=== PATIENT | male | born 1960 | race Caucasian/White ===

== ENCOUNTER → 2023-05-17 07:11 | Outpatient (REF) | payer OTHER, SELFPAY | LOC: DHCBC/DCA 07:11 | PROVIDERS: ATTENDING PHYSICIAN Internal Medicine Cardiovascular Disease | DX: K30 Functional dyspepsia (principal); R07.2 Precordial pain; R94.31 Abnormal electrocardiogram [ECG] [EKG] | CPT/HCPCS: 78452; 93017; A9500 ==

== ENCOUNTER → 2023-06-01 13:44 | Outpatient (REF) | payer OTHER, SELFPAY | LOC: RCS 13:44 | PROVIDERS: ATTENDING PHYSICIAN Internal Medicine Cardiovascular Disease; FAMILY PHYSICIAN Family Medicine | DX: K30 Functional dyspepsia (principal); R07.2 Precordial pain | CPT/HCPCS: 93306 ==

== ENCOUNTER 2023-10-23 10:08 | Emergency (ER) | payer OTHER, SELFPAY ==
[2023-10-23 10:17] VITALS: BP 165/95
--- NOTE | 2023-10-23 12:06 | ED.GENMED ---
History of Present Illness
General
Chief Complaint: Abdominal Pain
Source: patient
Exam Limitations: none
Time Seen by Provider: 10/23/23 11:41
History of Present Illness
History of Present Illness:
63-year-old male with 10 days to 2 weeks of left-sided abdominal pain. Points to the left flank. Some radiation of the back. No fever chills no urinary symptoms. No change in bowels. No bloody or mucousy stools. No nausea or vomiting. No
history of similar pain. Does have a history of IBS but feels different. Patient is supposed to go on a trip in the next few days and did not want to be ill while he was traveling.
Past History
Past History
ED Past Medical History: HTN, Hypercholesterolemia, NIDDM and Other (IBS, Obesity)
ED Past Surgical History: Cholecystectomy
Social History
Tobacco: Non-smoker
Alcohol: None
Drug: None
Personal:
Living: with family
Employment: Employed
Family History
Family History: Other (Mother had [place] at 60)
Review of Systems
Review of Systems
All Other Systems: Not applicable
Constitutional: Denies fever or chills
Respiratory: Reports no symptoms
Cardiac: Reports no symptoms
Phy Exam
Physical Exam
Physical Exam:
GENERAL: Alert and oriented in no apparent distress
EYE: Orbits normal.
NECK: Supple
CARDIAC: Regular rate and rhythm without any obvious murmurs.
LUNGS: Clear breath sounds,normal
ABDOMEN: Soft, very minimal left mid quadrant tenderness. No rebound or guarding no mass or hernia. No rash. No CVA tenderness.
NEUROLOGICAL: Alert and oriented , grossly non-focal
SKIN: Warm and dry, no rash or lesion, no discoloration, skin intact.
MUSCULOSKELETAL: No edema,no deformity.Good color
PSYCH: Normal and appropriate interaction.
Course
Orders/Labs/Results
Orders:
Orders
10/23/23 12:05
IV Insert/Care/Rem.- Treatment PRN
0.9% Sodium Chloride 500 ml [Nss] 500 ml IV BOLUS
10/23/23 12:33
Complete Blood Count/With Diff Urgent
Comprehensive Metabolic Panel Urgent
Lipase Urgent
10/23/23 13:32
Urinalysis Reflex To Culture Urgent
Date Specimen was Collected: 10/23/23
Time Specimen was Collected: 13:30
10/23/23 14:05
CT Abd/Pel (IV only)-DH only Urgent
Comment:
Reason For Exam: Left-sided abdominal pain
10/23/23 15:26
Electrocardiogram (*1) Stat
Reason for Study: Abdominal Pain
EKG- Treatment ONCE
Abnormal Lab Results
10/23/23 10/23/23
12:33 13:32
Immature Gran % 0.6 H %
(0-0.5)
Sodium 133 L mmol/L
(135-145)
Glucose 307 H mg/dl
(70-99)
Urine Ketones 2+ A
(Negative)
Urine Glucose 3+ A
(Negative)
10/23/23 12:33
10/23/23 12:33
Vital Signs
Initial and Last Documented VS:
Initial Vital Signs
Temp Pulse Resp BP Pulse Ox
98 F 83 18 165/95 95
10/23/23 10:17 10/23/23 10:17 10/23/23 10:17 10/23/23 10:17 10/23/23 10:17
Last Documented Vital Signs
Temp Pulse Resp BP Pulse Ox
98 F 83 18 165/95 95
10/23/23 10:17 10/23/23 10:17 10/23/23 10:17 10/23/23 10:17 10/23/23 10:17
MDM/Problems Addressed
Differential Diagnosis Includes:
Differential includes kidney stone diverticulitis colitis musculoskeletal/radiculopathy. No rash. Doubt shingles. Workup in progress. If urinalysis positive for blood we will do a plain CT. If urinalysis is negative we will do a CT with IV
contrast
*Radiology
Radiology exam reviewed: radiology read reviewed (Gastric wall thickening nonspecific small bowel findings)
*Pulse Oximetry
Patient hypoxic: no
*EKG
Interpreted by ED Provider?: Yes
Interpretation: abnormal
Comparison EKG: no changes
Heart Rate: 66
Rate: normal
Rhythm: sinus
Maybee: normal axis
Interval: normal interval
QRS Pattern: normal QRS
Ischemia: non-specific ST changes
*Critical Care Note
Total Time (30-74mins, 75-104mins- exclusive of procedures): Not Applicable
Update Note
Update Note:
Patient has had continuous symptoms for a week to 10 days. Points to the left mid to lateral quadrant. Do not feel this is a cardiac issue. No chest pain no shortness of breath no upper back pain. Negative stress test in May 2023. Will do a
Pepcid a day and follow-up
ED Attending Note
-
Portions of this chart may have been created with voice recognition software.� Occasional wrong word or��sound alike� substitutions may have occurred due to the inherent limitations of voice recognition software.
Discharge Plan
Departure
Patient Disposition: Home (Routine Discharge)
Date of Disposition: 10/23/23
Time of Disposition: 15:23
Patient with high blood pressure during this ER visit?: Yes
Discharge Problem:
Left-sided abdominal pain, hyperglycemia
Instructions: High Blood Sugar, Adult ED, Abdominal Pain, BLOOD PRESSURE
Prescriptions:
No Action
cholestyramine (with sugar) 4 GM powder in packet
4 gm PO DAILY
amlodipine 5 MG tablet
10 mg PO DAILY
aspirin 81 MG tablet,delayed release (DR/EC)
81 mg PO DAILY
atorvastatin [Lipitor] 20 mg Tablet
20 mg PO HS
metformin 1,000 mg tablet
1,000 mg PO BID
alum-mag hydroxide-simeth [Mylanta] 200-200-20 mg/5 mL Suspension
10 ml FEEDING TUBE QID PRN (Reason: stomach issue)
Tiff[place] Heartburn-Gas 750-80 mg Tablet,Chewable
1 tab PO BIDPRN PRN (Reason: stomach issuses)
sucralfate [Carafate] 1 gram tablet
1 g PO QID Qty: 30 0RF
dicyclomine 10 mg capsule
10 mg PO QID Qty: 30 0RF
oxycodone 5 mg tablet
5 mg PO Q4H PRN (Reason: pain) Qty: 14 0RF
pantoprazole [Protonix] 40 mg tablet,delayed release (DR/EC)
40 mg PO DAILY Qty: 10 0RF
amlodipine 10 mg tablet
10 mg PO DAILY Qty: 30 0RF
metronidazole 500 mg tablet
500 mg PO TID Qty: 21 0RF
levofloxacin 750 mg tablet
750 mg PO DAILY 7 Days Qty: 7 0RF
hydrocortisone acetate [Anusol-HC] 25 mg suppository
25 mg [place] DAILY Qty: 12 0RF
Referrals:
Saskia Schroeder MD [Family Provider] - Follow up in 2-3 days
Marcos Roman MD [Active] - Next open appointment
Activity Restrictions/Additional Instructions:
Take a Pepcid a day for the next 2 weeks
Recommend GI follow-up
Return sooner with increased pain fever vomiting or any other concerning symptoms
Interventions
Interventions:
*Risk Screen - Suicide Last Done: 10/23/23 10:17
*General Assessment Last Done: 10/23/23 10:17
*Neglect/Abuse Screening Last Done: 10/23/23 10:17
ED- Fall Risk Assessment Last Done: 10/23/23 14:01
*ED COVID-19 Vaccine History Last Done: 10/23/23 14:01
LF-Yacpuf-Fltydbtarj Assessment Last Done: 10/23/23 14:01
Discharge Date and Time
Print Language: AZERI
[2023-10-23] MEDS: NSS 500 IV (12:34)
[2023-10-23 12:43] LABS: % Eosinophils 2.3 % (0-6); % Immature Granulocytes 0.6 % (0-0.5); % Lymphocytes 23.2 % (20.5-51.1); % Monocytes 5.8 % (1.7-9.3); % Neutrophils 67.1 % (42.2-75.2); Absolute Basophils 0.1 10^3/uL (0-0.2); Absolute Eosinophils 0.2 10^3/uL (0-0.7); Absolute Lymphocytes 1.7 10^3/uL (1.2-3.4); Absolute Monocytes 0.4 10^3/uL (0.1-0.6); Absolute Neutrophils 4.8 10^3/uL (1.4-6.5); Hematocrit 43.4 % (39.0-52.0); Mean Corp Hgb Conc. 36.9 g/dL (33.0-37.0); Mean Corpuscular Hgb 30.6 pg (27.0-31.0); Nucleated Red Blood Cells % 0 % (-); Platelet Count 259 10^3/uL (130-400); Red Blood Cell Count 5.23 10^6/uL (4.70-6.10); Red Cell Dist. Width 12.7 % (11.5-14.5); White Blood Cell Count 7.1 10^3/uL (4.8-10.8)
[2023-10-23 12:57] LABS: ALT (SGPT) 23 U/L (0-50); AST (SGOT) 22 U/L (17-59); Albumin 4.3 g/dl (3.5-5.0); Alkaline Phosphatase 123 U/L (38-126); Blood Urea Nitrogen 19 mg/dl (9-20); Calcium 9.8 mg/dl (8.4-10.2); Carbon Dioxide 23 mmol/L (22-30); Chloride 100 mmol/L (98-107); Glucose 307 mg/dl (70-99); Lipase 83 U/L (23-300); Potassium 4.6 mmol/L (3.5-5.1); Sodium 133 mmol/L (135-145); Total Bilirubin 0.9 mg/dl (0.2-1.3); Total Protein 6.7 g/dl (6.3-8.2); eGFR > 60.00
[2023-10-23 13:39] LABS: Urine Albumin Negative (Neg - Trace); Urine Bilirubin Negative (Negative); Urine Character Clear (Clear); Urine Color Yellow; Urine Glucose 3+ (Negative); Urine Ketone 2+ (Negative); Urine Leukocyte Negative (Negative); Urine Nitrite Negative (Negative); Urine Occult Blood Negative (Negative); Urine Urobilinogen Negative (Neg - 1+)
[2023-10-23 16:08] VITALS: BP 122/79
== END 2023-10-23 16:13 | disposition home or self-care (01) ==
LOC: EMR 10:08
PROVIDERS: EMERGENCY PHYSICIAN Emergency Medicine; FAMILY PHYSICIAN Family Medicine
DX: R10.9 Unspecified abdominal pain (principal); E11.65 Type 2 diabetes mellitus with hyperglycemia; I10 Essential (primary) hypertension; K58.9 Irritable bowel syndrome, unspecified
CPT/HCPCS: 99285; 96360; 96361; 74177; 80053; 81003; 83690; 85025; 93005; Q9967

== ENCOUNTER 2024-03-27 00:18 | Emergency (ER) | payer OTHER, SELFPAY ==
[2024-03-27 00:21] VITALS: BP 150/100
--- NOTE | 2024-03-27 01:30 | ED.MUSCINJ ---
HPI-Injury
<ANGELA Shaw - Last Filed: 03/27/24 03:20>
General
Chief Complaint: Musculo-Skeletal Complaint
Source: patient
Exam Limitations: none
Time Seen by Provider: 03/27/24 01:13
History of Present Illness-Injury
Is this injury a work related problem?: No
Is pt an associate of [facility]?: No
Initial Injury comments:
This is a 63 year old male that comes in with c/o right knee pain and swelling. States that he had some low back pain after shoving snow at [place]. States that his left leg is giving out and on Tuesday it gave out twice. States that he finds of he
only puts his toes down and the ball of the foot that is when hie legs gives out. States that on Tuesday he was going form the Kitchen to the family room and there is a step there. States that he went down on the right knee. Know he has pain in the
right knee and swelling. States that he has considerable bruising of the posterior leg. Denies any fever, chills, chest pain, SOB, abd pain, nausea, vomiting, diarrhea, headache, dizziness, urinary burning.
Past History
<ANGELA Shaw - Last Filed: 03/27/24 03:20>
Past History
ED Past Medical History: HTN, Hypercholesterolemia, NIDDM and Other (IBS, Obesity)
ED Past Surgical History: Cholecystectomy
Social History
Tobacco: Non-smoker
Alcohol: None
Drug: None
Personal:
Living: with family
Employment: Employed
Family History
Family History: Other (Mother had [place] at 60)
Review of Systems
<ANGELA Shaw - Last Filed: 03/27/24 03:20>
Review of Systems
All Other Systems: ROS reviewed and negative except as documented in HPI and ROS
Constitutional: Reports no symptoms; Denies fever or chills
EENT: Reports no symptoms
Respiratory: Reports no symptoms; Denies cough or trouble breathing
Cardiac: Reports no symptoms; Denies chest pain
ABD/GI: Reports no symptoms; Denies abdominal pain, nausea, vomiting or diarrhea
: Reports no symptoms; Denies dysuria, frequency or urgency
Musculoskeletal: Reports joint pain (Right knee pain)
Skin: Reports no symptoms
Neurological: Reports no symptoms; Denies dizzy or headache
Psychiatric: Reports no symptoms
Musculoskeletal Injury Exam
<ANGELA Shaw - Last Filed: 03/27/24 03:20>
Musculoskeletal Injury Exam
Right Knee:
Pain with Movement?: Mild
Tender to palpation?: Mild
Soft tissue swelling?: Mild
External deformity and angulation?: None
Joint effusion?: None
Contusion?: None
Hematoma-local bleeding into tissue?: Moderate
Strain- Sprain- Tear (Connective tissue injury)?: None
Crepitus with movement?: No
Joint instability?: No
Malalignment/deformity?: No
Range of motion: Full
Distal skin color and temperature: normal-warm & good color
Capillary Refill: normal
Normal distal neurovascular exam?: Yes
Phy Exam
<ANGELA Shaw - Last Filed: 03/27/24 03:20>
General Physical Exam
General Presentation: well appearing and no apparent distress
General age: appears stated age
General Skin: warm and dry
General Habitus: normal
General Mental: alert
Eye Exam
Eye Exam: EOMI
Musculoskeletal Exam
Musculoskeletal Exam: full ROM and other (Slight swelling of right knee on the medial aspect. Slight tenderness with palpation)
Skin Exam
Skin Exam: other ( Slight contusion on the medial thigh. Signiant bruising on the posterior distal thigh, posterior knee and slightly in the proximal lower leg)
Psychiatric Exam
Psychiatric Exam: normal mood/affect
Injury Course
<ANGELA Shaw - Last Filed: 03/27/24 03:20>
Orders/Labs/Results
Orders:
Orders
03/27/24 01:01
Knee, Right 4 or More Views [CR Knee- Right 4 Or More View*] Urgent
Comment:
Reason For Exam: trauma, fall onto x2, swelling, bruising
03/27/24 01:30
US Periph Venous LOWER Ext RT Urgent
Comment:
Reason For Exam: Sweling pain
03/27/24 02:17
Tib/Fib, Right 2 View [CR Leg Tibia/fibula Right 2 Vw] Urgent
Comment:
Reason For Exam: pAIN LOWER LEG
03/27/24 02:51
Dustin Wrap Right-Treatment ONCE
<Celso Barbosa MD - Last Filed: 03/27/24 02:19>
Orders/Labs/Results
Orders:
Orders
03/27/24 01:01
Knee, Right 4 or More Views [CR Knee- Right 4 Or More View*] Urgent
Comment:
Reason For Exam: trauma, fall onto x2, swelling, bruising
03/27/24 01:30
US Periph Venous LOWER Ext RT Urgent
Comment:
Reason For Exam: Sweling pain
03/27/24 02:17
Tib/Fib, Right 2 View [CR Leg Tibia/fibula Right 2 Vw] Urgent
Comment:
Reason For Exam: pAIN LOWER LEG
03/27/24 02:51
Dustin Wrap Right-Treatment ONCE
<ANGELA Shaw - Last Filed: 03/27/24 03:20>
MDM/Problems Addressed
Differential Diagnosis Includes:
Fracture right knee. DVT, Bakers cyst,
MDM/Problems Addressed:
This is a 63 year old male that comes in with c/o right knee pain after falling on to the knee on Tuesday. States that the knee is swollen and painful.
Will get US and X-ray right knee and Tib/Fib.
Back into see patient. Explained that his US was negative for DVT and his X-rays are negative for any fracrtures. Will place patient in an dustin bandage and have him follow up with the packaging specialist. Return with any concerns.
Chronic conditions affecting care: DM and HTN
Acute Exacerbation and/or Progression of Chronic Illness:
NA
<ANGELA Shaw - Last Filed: 03/27/24 03:20>
*Radiology
Radiology exam reviewed: preliminary read by ED provider (Right knee- Negative for fractures or dislocation. Tib/Fib negative for fractures. ) and other (US negative for DVT)
*Pulse Oximetry
Patient hypoxic: no
*EKG
Interpreted by ED Provider?: NA
Rate: EKG- N/A
*Assembler Body Interpretation
Rate: Assembler Body- N/A
*Critical Care Note
Total Time (30-74mins, 75-104mins- exclusive of procedures): Not Applicable
ED Attending Note
<ANGELA Shaw - Last Filed: 03/27/24 03:20>
-
Portions of this chart may have been created with voice recognition software.� Occasional wrong word or��sound alike� substitutions may have occurred due to the inherent limitations of voice recognition software.
<Celso Barbosa MD - Last Filed: 03/27/24 02:19>
ED Attending Note
Patient seen and examined by attending physician: Yes
I performed the substantive portion of visit, reviewed & personally made and approve the management plan that is documented in note by myself or JAYY.: Yes
ED Attending Note:
63-year-old male presents with right leg pain bruising behind the leg and swelling. His left leg has been giving out since about [place] time. Some low back pain. No bowel or bladder issues. No chest pain shortness of breath fever or other
complaints.
On exam there is ecchymosis behind the right distal thigh and proximal calf. Knee clinically stable. Able to straight leg raise. No laxity. Mild tenderness to the lateral knee. Tenderness to the proximal tibia with mild swelling. Good distal
pulses and color. Good lower extremity strength. Plantar dorsiflexion of the foot normal. Straight leg raising normal. Left leg also has good strength with plantar and dorsi flexion. Straight leg raising normal. No weakness. No vascular
issues.
Clinically not totally sure whether the left leg giving out is a lumbar issue with radiculopathy or a primary knee issue. Either way this is been going on for about 3+ weeks and is clinically stable. Warrants outpatient follow-up. The right leg
has some swelling. Ultrasound will be done. Repeat or further x-ray of the tibia-fibula because of a faint line on the proximal tibia by knee x-ray. Doubt this is a fracture. Assuming ultrasound is unremarkable will have knee immobilizer and
orthopedic follow-up.
Discharge Plan
Departure
Patient Disposition: Home (Routine Discharge)
Date of Disposition: 03/27/24
Time of Disposition: 03:15
Patient with high blood pressure during this ER visit?: Yes
Condition: Good
Covid-19: Not Applicable
Discharge Problem:
Acute pain of right knee
Instructions: Muscle Strain (DC), Knee Pain (DC), BLOOD PRESSURE
Prescriptions:
No Action
cholestyramine (with sugar) 4 GM powder in packet
4 gm PO DAILY
amlodipine 5 MG tablet
10 mg PO DAILY
aspirin 81 MG tablet,delayed release (DR/EC)
81 mg PO DAILY
atorvastatin [Lipitor] 20 mg Tablet
20 mg PO HS
metformin 1,000 mg tablet
1,000 mg PO BID
alum-mag hydroxide-simeth [Mylanta] 200-200-20 mg/5 mL Suspension
10 ml FEEDING TUBE QID PRN (Reason: stomach issue)
[place] Heartburn-Gas 750-80 mg Tablet,Chewable
1 tab PO BIDPRN PRN (Reason: stomach issuses)
sucralfate [Carafate] 1 gram tablet
1 g PO QID Qty: 30 0RF
dicyclomine 10 mg capsule
10 mg PO QID Qty: 30 0RF
oxycodone 5 mg tablet
5 mg PO Q4H PRN (Reason: pain) Qty: 14 0RF
pantoprazole [Protonix] 40 mg tablet,delayed release (DR/EC)
40 mg PO DAILY Qty: 10 0RF
amlodipine 10 mg tablet
10 mg PO DAILY Qty: 30 0RF
metronidazole 500 mg tablet
500 mg PO TID Qty: 21 0RF
levofloxacin 750 mg tablet
750 mg PO DAILY 7 Days Qty: 7 0RF
hydrocortisone acetate [Anusol-HC] 25 mg suppository
25 mg [place] DAILY Qty: 12 0RF
Referrals:
Sascha López, DO [Non-Admitting Privileges] - Follow up in 2-3 days
Saskia Schroeder MD [Family Provider] -
Activity Restrictions/Additional Instructions:
As discussed, your X-rays are negative for any fractures. Your Ultrasound is negative. Please follow up with the packaging specialist for further evaluation. You may use Tylenol 1000mg every 6 hours for pain. Heat or ice to the knee which ever
makes your fell better. The bruising on the back of the leg will go with gravity and it may move further down into the posterior leg and possible the foot. You have been place in an dustin bandage to help give the knee support. IF YOU HAVE ANY OTHER
CONCERNS PLEASE RETURN TO THE EMERGENCY ROOM.
Interventions
Interventions:
*Risk Screen - Suicide Last Done: 03/27/24 00:21
*General Assessment Last Done: 03/27/24 00:39
*Neglect/Abuse Screening Last Done: 03/27/24 00:21
ED- Fall Risk Assessment Last Done: 03/27/24 00:39
*ED COVID-19 Vaccine History Last Done: 03/27/24 00:39
ED-Musculoskeletal Assessment Last Done: 03/27/24 00:39
Discharge Date and Time
Print Language: JAPANESE
[2024-03-27 03:00] VITALS: BP 132/80
== END 2024-03-27 03:35 | disposition home or self-care (01) ==
LOC: EMR 00:18
PROVIDERS: EMERGENCY PHYSICIAN Emergency Medicine; FAMILY PHYSICIAN Family Medicine
DX: S70.11XA Contusion of right thigh, initial encounter (principal); S80.11XA Contusion of right lower leg, initial encounter; M25.561 Pain in right knee; W19.XXXA Unspecified fall, initial encounter; E11.9 Type 2 diabetes mellitus without complications; I10 Essential (primary) hypertension; E78.00 Pure hypercholesterolemia, unspecified; Z90.49 Acquired absence of other specified parts of digestive tract
CPT/HCPCS: 99284; 73564; 73590; 93971

== ENCOUNTER → 2024-04-06 09:59 | Outpatient (REF) | payer OTHER, SELFPAY | LOC: HWRAD 09:59 | PROVIDERS: ATTENDING PHYSICIAN Physical Medicine & Rehabilitation; FAMILY PHYSICIAN Family Medicine | DX: M54.16 Radiculopathy, lumbar region (principal) | CPT/HCPCS: 72131 ==

== ENCOUNTER 2024-06-13 11:24 | Inpatient (IN) | payer OTHER, SELFPAY ==
[2024-06-13] VITALS (13 sets, daily range): BP systolic 102–179; BP diastolic 69–100; BMI 38.7; BMI 38.5
--- NOTE | 2024-06-13 07:52 | ED.CVA ---
History of Present Illness
General
Chief Complaint: CVA/TIA Symptoms
Source: patient and spouse
Time Seen by Provider: 06/13/24 07:40
Onset of Stroke Symptoms
Onset of symptoms known: Yes
Date of onset of symptoms: 06/12/24
Time of onset of symptoms: 15:30
History of Present Illness
History of Present Illness:
64-year-old male presents to the emergency room complaining of right facial droop, right arm weakness and slurred speech. Patient states he first noticed some slurring of his speech at approximately 3:30 PM yesterday. He he also noticed that his
right hand was clumsy over the course of the afternoon evening. He was having difficulty writing texts on his phone because his finger would hit the wrong marcos. He denies headache, nausea, vomiting. He denies any new leg weakness numbness or
tingling. Patient does have some baseline left leg discomfort and weakness from left-sided back pain. However he has no symptoms whatsoever in the right leg. He has been able to ambulate. He does not feel he has trouble with word finding. He
had been taking a baby aspirin a day but ran out of them so has not been taking them for the past week or so.
Past History
Past History
ED Past Medical History: HTN, Hypercholesterolemia, NIDDM and Other (IBS, Obesity)
ED Past Surgical History: Cholecystectomy
Social History
Tobacco: Non-smoker
Alcohol: None
Drug: None
Personal:
Living: with family
Employment: Employed
Family History
Family History: Other (Mother had CO at 60)
Phy Exam
Physical Exam
Physical Exam:
General: Awake, Alert, Oriented X3. No acute distress.
Vitals: Hypertensive
Head: Atraumatic
Eyes: Pupils equal, EOMI, no apparent visual field cuts
Throat: Airway intact, no exudates
Neck: Trachea midline
Lungs: Clear and equal b/l
Heart: Regular rate, no murmurs
Abd: Soft, Nontender, No pulsatile mass
Neuro: Right facial droop, tongue deviation to the right. Muscle strength 5/5 throughout, sensation intact throughout
Skin: Warm, dry, no rash
Extremities: pulses equal b/l, no edema
Scores
NIH Stroke Score
Level of Consciousness: 0 - Alert
LOC Questions: 0-Answers both correctly
LOC Commands: 0-Performs both correctly
Best Horizontal Gaze: 0-Normal
Visual Thornton: 0=Normal, no visual loss
Facial Palsy: 2=Partial paralysis
Motor - Right Arm: 0=No drift 10 seconds
Motor - Left Arm: 0=No drift 10 seconds
Motor - Right Le-No drift 5 seconds
Motor - Left Le-No drift 5 seconds
Limb Ataxia: 0-Absent
Sensation: 0-Normal
Best Language: 0-No aphasia
Dysarthria: 2-Severe slurring
Extinction and Inattention: 0-No abnormality
Total Score:: 4
Thrombolytic Contraindication
Reasons for NON-Tx with Thrombolytics ABSOLUTE Exclusions: Greater than 4.5 hrs from onset of sxs
Course
Orders/Labs/Results
Orders:
Orders
06/13/24 07:51
Electrocardiogram (*1) Stat
Reason for Study: Other
Other Reason for Exam: neuro symptoms
CT Head & Neck Angio W/wo IV Urgent
Comment:
Reason For Exam: right sided weakness
Bedside Glucose- Treatment ONCE
Cardiac Monitoring- Treatment ONCE
EKG- Treatment ONCE
06/13/24 07:59
Complete Blood Count/With Diff Urgent
Comprehensive Metabolic Panel Urgent
Glycohemoglobin (HgbA1c) Urgent
06/13/24 10:01
Aspirin Chewable [Low Strength Aspirin] 324 mg PO NOW STA
06/13/24 10:13
Clopidogrel Bisulfate [Plavix] 300 mg PO NOW STA
06/13/24 10:35
NEUROLOGY CONSULT Urgent
Consulting Provider: Philip Delacruz
Was physician already notified: Yes
Reason for consult: contacted by ED
06/13/24 10:55
Admit/Transfer Patient As Directed
Co-Sign Provider:
Level of Care: Inpatient admission
Assign to:: Telemetry
Physician / Group: meli curtis
Diagnosis: TIA/CVA,uncontrolled diabetes
Reason for Telemetry: Arrhythmia
Date to Stop Telemetry: 06/16/24
Time to Stop Telemetry: 11:00
Reason for Hospitalization: TIA/CVA,uncontrolled diabetes
Expected length of stay greater than two midnights?: Yes
ELOS- Estimated Length of Stay in days: 3
I certify the patient meets the requirements for IP care: Yes
06/13/24 10:58
PRN Pain Medication Management As Directed
May give lesser potent ordered pain med per pt: Yes
preference::
Protocol:: Medication orders for pain may be administered in a
manner that supports deferring to patient preference
when the pt is:
- Requesting an ordered lesser potent pain medication.
Least to most potent pain medications are defined
as: acetaminophen < NSAID < tramadol < opioids
(morphine, oxycodone, hydromorphone).
- Requesting a lesser dose of the same medication IF
ORDERED.
- Requesting a less intrusive route of administration
if both routes are prescribed by the provider (PO <
IV).
06/13/24 11:00
Code Status As Directed
Resuscitation Status: Full Code
06/13/24 11:06
Add On- LAB Stat
Tests Added?: A1c
06/13/24 11:07
Dextrose 50%-Water [Dextrose 50% Syringe] 12.5 grams IV [id number] PRN
Glucagon [GlucaGen] 1 mg IM PRN PRN
Bedside Glucose Monitoring As Directed
Frequency: AC&HS
Additional Instructions:: Change to q6h if pt on TPN, tube feeding or not eating
06/13/24 11:30
Insulin Aspart Corrective Low [Novolog Flexpen-Low Resistance] See Protocol SC AC
06/13/24 12:17
DIETARY IP CONSULT Routine
Reason for Consult: stroke/TIA
06/13/24 12:55
MR Brain Without Contrast Routine
Comment:
Reason For Exam: stroke/TIA
Recent pill cam endoscopy?: No
06/14/24 06:00
Lipid Profile [Cardiovascular Evaluation] IN AM
06/16/24 11:00
DC Protocol for Telemetry ONCE
Abnormal Lab Results
06/13/24 06/13/24
07:59 08:01
Abs Immat Gran (auto) 0.1 H 10^3/uL
(0-0.05)
Immature Gran % 0.6 H %
(0-0.5)
Creatinine 0.6 L mg/dL
(0.7-1.3)
Glucose 313 H mg/dl
(70-99)
Alkaline Phosphatase 127 H U/L
(38-126)
POC Glucose 274 H mg/dl
(70-99)
06/13/24 07:59
06/13/24 07:59
Vital Signs
Initial and Last Documented VS:
Initial Vital Signs
Temp Pulse Resp BP Pulse Ox
98.3 F 97 16 179/93 95
06/13/24 07:36 06/13/24 07:36 06/13/24 07:36 06/13/24 07:36 06/13/24 07:36
Last Documented Vital Signs
Temp Pulse Resp BP Pulse Ox
98.3 F 83 23 134/84 95
06/13/24 07:36 06/13/24 11:30 06/13/24 11:30 06/13/24 12:00 06/13/24 12:00
MDM/Problems Addressed
Differential Diagnosis Includes:
Ischemic stroke, bleed, mass
MDM/Problems Addressed:
Patient presents with 16 hours of right facial droop, slurred speech and some right arm weakness. Given the time of onset he is not a candidate for thrombolytics. He is not a candidate for IAT because delayed onset at his NIH score is relatively
low. No acute finding noted on CT or CTA. Patient will require hospitalization for stroke workup.
Chronic conditions affecting care: DM and HTN
*Radiology
Radiology exam reviewed: radiology read reviewed
*Pulse Oximetry
Patient hypoxic: no
*EKG
Interpreted by ED Provider?: Yes
Interpretation: normal
Rate: normal
Rhythm: sinus
[place]: normal axis
Interval: normal interval
QRS Pattern: normal QRS
Ischemia: no ischemia
*[facility] Interpretation
Rate: normal
Interpretation: normal
Rhythm: sinus
*Critical Care Note
Total Time (30-74mins, 75-104mins- exclusive of procedures): 35 min
comment:
Critical care statement: A total of 35 minutes of critical care time was provided for this patient. This includes management of unstable vital signs, evaluation of the patient at bedside, reviewing the patient�s pertinent medical records, discussion
with consultants, review of old EKGs and review of pertinent medical records. This time with separate from time utilized to perform the aforementioned documented procedures
ED Attending Note
-
Portions of this chart may have been created with voice recognition software.� Occasional wrong word or��sound alike� substitutions may have occurred due to the inherent limitations of voice recognition software.
Discharge Plan
Departure
Patient Disposition: Admit
Date of Disposition: 06/13/24
Time of Disposition: 10:03
Admit to: Telemetry
Presentation/result/management discussed w/ accepting MD/DO: Hospitalist
Condition: Fair
Discharge Problem:
Acute CVA (cerebrovascular accident)
Interventions
Interventions:
*General Assessment Last Done: 06/13/24 07:54
*ED- Fall Risk Assessment Last Done: 06/13/24 07:54
*ED COVID-19 Vaccine History Last Done: 06/13/24 07:54
ED- Pulmonary Assessment Last Done: 06/13/24 12:00
ED- Neurological Assessment Last Done: 06/13/24 08:47
ED- Cardiac Assessment Last Done: 06/13/24 11:52
ED Swallowing Screen Last Done: 06/13/24 10:30
[2024-06-13 08:02] LABS: Glucose - Point of Care 274 mg/dl (70-99)
[2024-06-13 08:18] LABS: % Basophils 0.9 % (0-2); % Eosinophils 2.7 % (0-6); % Immature Granulocytes 0.6 % (0-0.5); % Lymphocytes 23.9 % (20.5-51.1); % Monocytes 7.2 % (1.7-9.3); % Neutrophils 64.7 % (42.2-75.2); Absolute Basophils 0.1 10^3/uL (0-0.2); Absolute Eosinophils 0.2 10^3/uL (0-0.7); Absolute Immature Granulocytes 0.1 10^3/uL (0-0.05); Absolute Lymphocytes 2.1 10^3/uL (1.2-3.4); Absolute Monocytes 0.6 10^3/uL (0.1-0.6); Absolute Neutrophils 5.7 10^3/uL (1.4-6.5); Hematocrit 46.6 % (39.0-52.0); Hemoglobin 16.7 g/dL (13.0-18.0); Mean Corp Hgb Conc. 35.8 g/dL (33.0-37.0); Mean Corpuscular Hgb 30.9 pg (27.0-31.0); Mean Corpuscular Volume 86.1 fL (80.0-94.0); Mean Platelet Volume 10.3 fL (7.4-10.4); Nucleated Red Blood Cells % 0 % (-); Platelet Count 295 10^3/uL (130-400); Red Blood Cell Count 5.41 10^6/uL (4.70-6.10); Red Cell Dist. Width 12.7 % (11.5-14.5); White Blood Cell Count 8.9 10^3/uL (4.8-10.8)
[2024-06-13 08:25] LABS: ALT (SGPT) 18 U/L (0-50); AST (SGOT) 18 U/L (17-59); Albumin 4.3 g/dl (3.5-5.0); Alkaline Phosphatase 127 U/L (38-126); Blood Urea Nitrogen 16 mg/dl (9-20); Calcium 9.7 mg/dl (8.4-10.2); Carbon Dioxide 23 mmol/L (22-30); Chloride 104 mmol/L (98-107); Estimated Creatinine Clearance > 125 ml/min; Glucose 313 mg/dl (70-99); Potassium 3.9 mmol/L (3.5-5.1); Sodium 139 mmol/L (135-145); Total Bilirubin 0.9 mg/dl (0.2-1.3); Total Protein 6.9 g/dl (6.3-8.2); eGFR > 60.00
[2024-06-13] MEDS: PLAVIX 300 MG PO (10:49)
[2024-06-13] MEDS: LOW STRENGTH ASPIRIN 324 MG PO (10:49)
--- NOTE | 2024-06-13 11:06 | HPS.HSE ---
Family Physician
-
Family Physician: Saskia Schroeder
Chief Complaint
-
slurred speech,weakness
History of Present Illness
64-year-old male with past medical history of obesity, hypertension, hyperlipidemia, ilo-cztxsjr-balryczko diabetes mellitus, IBS came to the hospital with right-sided facial droop along with mild right arm weakness and slurred speech. Per patient
his symptoms started around 330pm yesterday. He did not seek any medical attention at that time. This morning he started developing some right hand weakness along with slurred speech which prompted him to come to the ED for evaluation. Currently
he denies any chest pain, shortness of breath. Denies any nausea, vomiting, diarrhea, constipation. Patient was seen by neurology who does not think patient is candidate for TNK given symptoms started yesterday. Patient denies any previous stroke
history. He has been on baby aspirin however has not been taken for about past week. He also is known diabetic and per patient his A1c is 12 however he is not on insulin.
Medical History
Past Medical History
Past Medical History: Reports HTN, Hypercholesterolemia, NIDDM and Other (Obesity, IBS)
Past Surgical History: Reports Cholecystectomy
Social History
Tobacco: Non-smoker
Alcohol: None
Family History
Family History: Not pertinent
Allergies / Home Medications
Allergies reflects when Allergies were last updated in Reissued.
Home Medications with original date entered in Reissued
Allergy/Medication List:
Allergies
Allergy/AdvReac Type Severity Reaction Status Date / Time
codeine [Codeine] Allergy Intermediate Hives Verified 03/27/24 00:25
adhesive tape Allergy Rash Verified 03/27/24 00:25
amoxicillin Allergy chest Verified 03/27/24 00:25
tightness
Home Medications
cholestyramine (with sugar) 4 gram powder for susp in a packet 4 gm PO DAILY 11/06/09
aspirin 81 mg tablet,delayed release 81 mg PO DAILY 11/02/17
atorvastatin 20 mg tablet (Lipitor) 20 mg PO HS 11/04/21
metformin 1,000 mg tablet 1,000 mg PO BID 11/04/21
amlodipine 10 mg tablet 10 mg PO QPM 06/13/24
chlorhexidine gluconate 0.12 % mouthwash 15 ml buccal TID 06/13/24
gabapentin 300 mg capsule 300 mg PO TIDPRN PRN mild pain 06/13/24
Review of Systems
-
History Source: Patient
A 12 point ROS was completed and negative except as noted: Yes
Neurological: Reports Weakness
Physical Exam
Vital Signs
Vital Signs
Temp Pulse Resp BP Pulse Ox
98.3 F 103 20 146/71 95
06/13/24 07:36 06/13/24 10:58 06/13/24 07:53 06/13/24 07:53 06/13/24 07:36
Physical Exam
General: Well Nourished and No Apparent Distress
HEENT: Anicteric and Moist mucous membranes
Respiratory: Clear and Non Labored Respirations; No Wheezes
Cardiac: S1/S2 and Regular Rhythm
Breast: Deferred by me
GI: Soft, Non Tender and Non Distended
Rectal: Deferred by Provider
Genito-urinary: No Martinez
Musculoskeletal: No Edema
Neuro: Awake, Alert, Oriented and AO x 3
Psych: Calm and Intact Judgment/Insight
Laboratory Results
-
06/13/24 07:59
06/13/24 07:59
Laboratory Results
Total Bilirubin 0.9 mg/dl (0.2-1.3) 06/13/24 07:59
AST 18 U/L (17-59) 06/13/24 07:59
ALT 18 U/L (0-50) 06/13/24 07:59
Alkaline Phosphatase 127 U/L (38-126) H 06/13/24 07:59
Data Reviewed
-
CT Scan: Report Reviewed by me and Discussed with Patient
Lab Data: Labs Reviewed by me, Discussed with Patient and Discussed with Family
Impression/Plan
-
Slurred speech, aphasia likely secondary to TIA/CVA
CT scan without any hemorrhage
Check MRI
Seen by neurology in the ED, on not a TNK candidate given symptoms started yesterday
Gave her dose aspirin and Plavix in the ED, start dual antiplatelet therapy for total of 21 days and then likely aspirin alone
Statin
Check A1c, per patient is uncontrolled and he is trying to control it with diet and metformin. Repeat A1c, if elevated then will need diabetes education and insulin
Monitor on telemetry, follows up with Dr. Watkins for hypertension
Neurochecks, NIH
Hyperlipidemia
Statin
Hypertension
Continue amlodipine
Neuropathy
Diabetes mellitus
Update A1c
Insulin sliding scale
Accu-Cheks
DVT prophylaxis
Lovenox
Full code
I spent a total of 68 minutes with the patient or on the floor. More than 50% of this time involved counseling and coordination of care.
[2024-06-13 12:09] LABS: Glycohemoglobin (HgbA1c) 12.3 % (4.0-5.6)
--- NOTE | 2024-06-13 13:38 | CON.NEURO ---
Neuro Assessment/Plan
Assessment
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
unfortunately he is out of TPA window
Plan
continue ASA 81
load plavix 300 + plavix 75 x21 days.
increase Lipitor 40
discussed with patient options of inpatient vs outpatient workup, decided admission, tele, MRI brain, ECHO
Consultation
Order
Date of Consultation: 06/13/24
Requesting Provider: Juan Pablo Valdez
Reason for Consult: stroke
Subjective/Objective
Subjective Data
Date of Service: June 13, 2024
64-year-old male with past medical history of obesity, hypertension, hyperlipidemia, thu-slhprqx-gvlbegluw diabetes mellitus, IBS came to the hospital with right-sided facial droop along with mild right arm weakness and slurred speech. Per patient
his symptoms started around 330pm yesterday. He did not seek any medical attention at that time. This morning he started developing some right hand weakness along with slurred speech which prompted him to come to the ED for evaluation.
Objective Data
Vital Signs
Temp Pulse Resp BP Pulse Ox
36.8 C 83 23 134/84 95
06/13/24 07:36 06/13/24 11:30 06/13/24 11:30 06/13/24 12:00 06/13/24 12:00
Lab Results
06/13/24 07:59
06/13/24 07:59
Sodium 139 mmol/L (135-145) 06/13/24 07:59
Potassium 3.9 mmol/L (3.5-5.1) 06/13/24 07:59
BUN 16 mg/dl (9-20) 06/13/24 07:59
Glucose 313 mg/dl (70-99) H 06/13/24 07:59
Calcium 9.7 mg/dl (8.4-10.2) 06/13/24 07:59
Patient Allergies
codeine [Codeine] Allergy (Intermediate, Verified 03/27/24 00:25)
Hives
adhesive tape Allergy (Verified 03/27/24 00:25)
Rash
amoxicillin Allergy (Verified 03/27/24 00:25)
chest tightness
CVA Assessment
Onset of Stroke Symptoms
Onset of symptoms known: Yes
Date of onset of symptoms: 06/12/24
Time of onset of symptoms: 15:30
NIH Stroke Score
Level of Consciousness: 0 - Alert
LOC Questions: 0-Answers both correctly
LOC Commands: 0-Performs both correctly
Best Horizontal Gaze: 0-Normal
Visual Thornton: 0=Normal, no visual loss
Facial Palsy: 1=Minor paralysis
Motor - Right Arm: 0=No drift 10 seconds
Motor - Left Arm: 0=No drift 10 seconds
Motor - Right Le-No drift 5 seconds
Motor - Left Le-No drift 5 seconds
Limb Ataxia: 0-Absent
Sensation: 0-Normal
Best Language: 0-No aphasia
Dysarthria: 1-Mild slurring
Extinction and Inattention: 0-No abnormality
Total Score:: 2
Tenecteplase Contraindications
Inclusion and Exclusion criteria reviewed: Yes
Reasons for NON-Tx with Thrombolytics ABSOLUTE Exclusions: Time-out of window
Physical Exam
-
AAOx3, mildly dysarthric, language intact
VFF, EOMI, right facial droop
right pronator drift, right leg external rotation
sensation intact to touch/pin, right sided vibratory loss
Medications
-
Active Medications
Generic Name Dose Route Start Last Admin
Trade Name Freq PRN Reason Stop Dose Admin
Dextrose 12.5 grams 06/13/24 11:07
Dextrose 50% (0.5 Grams/Ml) 50 Ml Syringe IV 07/11/24 11:06
[id number] PRN
hypoglycemia
Protocol
Dextrose 12.5 grams 06/13/24 13:35
Dextrose 50% (0.5 Grams/Ml) 50 Ml Syringe IV 07/11/24 13:34
[id number] PRN
hypoglycemia
Protocol
Glucagon 1 mg 06/13/24 11:07
Glucagon 1 Mg Vial IM 07/11/24 11:06
PRN PRN
hypoglycemia
Protocol
Glucagon 1 mg 06/13/24 13:35
Glucagon 1 Mg Vial IM 07/11/24 13:34
PRN PRN
hypoglycemia
Protocol
Insulin Glargine 17 units/ 0.17 mls @ 0 mls/hr 06/13/24 22:00
Device SC 07/11/24 21:59
HS NACHO
As Directed
Insulin Aspart 0 units 06/13/24 11:30
Insulin Aspart Low Resistance 300 Units/3 Ml Pen.Injctr SC 07/11/24 11:29
AC NACHO
Protocol
Insulin Aspart 0 units 06/13/24 16:30
Insulin Aspart Low Resistance 300 Units/3 Ml Pen.Injctr SC 07/11/24 16:29
AC NACHO
Protocol
Insulin Aspart 5 units 06/13/24 16:30
Insulin Aspart (100 Units/Ml) 3 Ml Flexpen SC 07/11/24 16:29
AC NACHO
Sodium Chloride 0 flush 06/13/24 13:00
Sodium Chloride 0.9% (Flush) Syringe IV 07/11/24 12:59
PER PROTOCOL NACHO
Home Medications
�Medication �Instructions �Recorded
cholestyramine (with sugar) 4 gram 4 gm PO DAILY 11/06/09
powder for susp in a packet
aspirin 81 mg tablet,delayed 81 mg PO DAILY 11/02/17
release
atorvastatin 20 mg tablet (Lipitor) 20 mg PO HS 11/04/21
metformin 1,000 mg tablet 1,000 mg PO BID 11/04/21
amlodipine 10 mg tablet 10 mg PO QPM 06/13/24
chlorhexidine gluconate 0.12 % 15 ml buccal TID 06/13/24
mouthwash
gabapentin 300 mg capsule 300 mg PO TIDPRN PRN mild pain 06/13/24
--- NOTE | 2024-06-13 14:01 | PN.DE.MGMTRT ---
Insulin Management
- -
06/13/2024: Diabetes Management Consult
64-year-old male w/PMH: HTN, HLD, Obesity, NIDDM, IBS came to the hospital with right-sided facial droop along with mild right arm weakness and slurred speech. CT head--> left resendez radiata acute infarct.
Pt awake, alert, oriented, sitting up, able to discuss diabetes care plan, states that getting a stroke has been a wake up call for him. at bedside. All questions answered. According to the patient, He has known about having diabetes and was
taking Metformin 1000 mg BID. He states that his recent A1C was 14% in 05/2024, and that Prandin 0.5mg TID was added at the time. He reports that he has lost ~75lbs over the last 3 months. A1C is 12.3% on admission.
His FBG was 313 V, 274 POC on admission. Pt was started on basal bolus insulin, Lantus 17 units @ HS and NovoLog 5 units AC. Will make no changes to current regimen. Will closely monitor glucose trend and adjust insulin dose if necessary.
Will ask Diabetes Nurse Educator to provide Glucose Monitor and Insulin instructions.
Diabetes History
- -
Type of Diabetes: 2 requiring insulin
Pre-Admission Diabetes Regimen
06/13/24
07:59
Creatinine 0.6 L
Lab Results
Hemoglobin A1c 12.3 % (4.0-5.6) H 06/13/24 07:59
Insulin Pump Settings
IP Diabetes Regimen
06/13/24 06/13/24
07:59 08:01
Glucose 313 H
POC Glucose 274 H
Patient Education
[2024-06-13] MEDS: QUESTRAN 4 GRAM PO (14:21)
[2024-06-13 14:31] LABS: Glucose - Point of Care 248 mg/dl (70-99)
[2024-06-13 17:30] LABS: Glucose - Point of Care 251 mg/dl (70-99)
[2024-06-13] MEDS: NOVOLOG FLEXPEN-LOW RESISTANCE 3 UNITS SC (17:39)
[2024-06-13] MEDS: NOVOLOG FLEXPEN 5 UNITS SC (17:39)
[2024-06-13] MEDS: LIPITOR 40 MG PO (17:40)
[2024-06-13] MEDS: PERIDEX 0.12% ORAL RINSE PO (17:40)
[2024-06-13] MEDS: NORVASC 10 MG PO (17:40)
[2024-06-13] MEDS: LOVENOX 40 MG SC (17:41)
[2024-06-13 20:37] LABS: Glucose - Point of Care 240 mg/dl (70-99)
[2024-06-13 22:12] LABS: Glucose - Point of Care 226 mg/dl (70-99)
[2024-06-13] MEDS: PERIDEX 0.12% ORAL RINSE 15 ML PO (22:20)
[2024-06-13] MEDS: LANTUS 0.17 UNITS SC (22:20)
[2024-06-14] VITALS (8 sets, daily range): BP systolic 125–158; BP diastolic 65–96; PULSE 91–92; O2SAT 96–97
--- NOTE | 2024-06-14 01:02 | PTCARENOTE ---
Patient received in chair in room at change of shift. AAOx3. NIH of 4. Denies pain or discomfort at current time. Call pacheco within reach.
[2024-06-14] MEDS: NEURONTIN 300 MG PO ×2 (03:12→07:39)
[2024-06-14] MEDS: ATIVAN 0.5 MG IV (04:13)
[2024-06-14] MEDS: NSS (PRESERVATIVE FREE) 0.25 ML IV (04:13)
[2024-06-14 06:42] LABS: Glucose - Point of Care 223 mg/dl (70-99)
--- NOTE | 2024-06-14 07:30 | PTCARENOTE ---
06/14- S/P fall and getting patient back onto bed to sit at bedside, did NIH assessment along with Neurochecks from fall. AAOX3; R-facial droop; Significantly slurred speech but no aphagia; RUE and RLE Ataxia; Sensory inattention in RLE observed.
NIH score was 7 at this time, up from 4. Stroke Alert called. Vitals currently stable with [id number]. Patient states, 'It's just the Ativan from overnight with the MRI. I'm fine. I'm telling you I'm fine.' Educated patient that while that
may be very possible, we don't know that for sure, and we still need to do all checks for his neurological status. Advised since he fell during this admission, we can still get up and walk around together, but he can no longer do that independently
for his safety and new fall precautions. Stroke Alert called.
[2024-06-14] MEDS: NOVOLOG FLEXPEN 5 UNITS SC (07:38)
[2024-06-14] MEDS: NOVOLOG FLEXPEN-LOW RESISTANCE 2 UNITS SC (07:39)
[2024-06-14] MEDS: PERIDEX 0.12% ORAL RINSE 15 ML PO ×2 (07:39→16:26)
[2024-06-14] MEDS: ASPIR LOW (ENTERIC COATED) 81 MG PO (07:39)
[2024-06-14] MEDS: QUESTRAN 4 GRAM PO (07:40)
[2024-06-14] MEDS: PLAVIX 75 MG PO (07:40)
[2024-06-14 08:02] LABS: Glucose - Point of Care 211 mg/dl (70-99)
[2024-06-14 08:23] LABS: HDL Cholesterol 36 mg/dl; LDL Cholesterol, Calculated 56 mg/dl; Total Cholesterol 117 mg/dl (50-199); Triglyceride 126 mg/dl (10-149); Very Low Density Lipoprotein 25 mg/dl (0-30)
--- NOTE | 2024-06-14 09:04 | PN.DE.MGMTRT ---
Insulin Management
- -
06/14/2024: Diabetes Management follow up
64-year-old male w/PMH: HTN, HLD, Obesity, NIDDM, IBS came to the hospital with right-sided facial droop along with mild right arm weakness and slurred speech. CT head--> left resendez radiata acute infarct. According to the patient, He has known
about having diabetes and was taking Metformin 1000 mg BID. He states that his recent A1C was 14% in 05/2024, and that Prandin 0.5mg TID was added at the time. He reports that he has lost ~75lbs over the last 3 months. A1C is 12.3% on admission. Cr
0.6, eGFR >60
His FBG was 313 V, 274 POC on admission. Pt was started on basal bolus insulin, Lantus 17 units @ HS and NovoLog 5 units AC.
Pt awake, alert, oriented, sitting up, able to discuss diabetes care plan, states that getting a stroke has been a wake up call for him. at bedside. supportive
Glucose remains elevated, HS blood sugar was 226, pt received Lantus 17 units, FBG 223 this AM. Will increase Lantus to 20 units @ HS
Premeal glucose was 240 to 251, requiring 2-4 units of additional corrective insulin.
Will increase AC NovoLog to 8 units. Cont moderate corrective insulin with meals. Will resume Metformin 1000 mg BID tomorrow
Will closely monitor glucose trend and adjust insulin dose if necessary. Will ask RD to see pt to discuss diabetes diet.
Had a lengthy discussion with pt and regarding optimal glucose control to reduce risk of further diabetes related complications.
Encouraged pt to ask PCP for script for CGM now that he is on insulin therapy.
states that she too has been recently Dx with T2DM and is going to see her PCP today to get started on diabetes medications.
Pt will be seen by Diabetes Nurse Educator to provide Glucose Monitor and Insulin instructions later on today.
Diabetes History
- -
Type of Diabetes: 2 requiring insulin
Pre-Admission Diabetes Regimen
Lab Results
Hemoglobin A1c 12.3 % (4.0-5.6) H 06/13/24 07:59
Insulin Pump Settings
IP Diabetes Regimen
06/13/24 06/13/24 06/13/24
14:29 17:27 20:36
POC Glucose 248 H 251 H 240 H
06/13/24 06/14/24 06/14/24
22:11 06:41 08:01
POC Glucose 226 H 223 H 211 H
Patient Education
[2024-06-14 09:23] LABS: % Eosinophils 2.1 % (0-6); % Immature Granulocytes 0.4 % (0-0.5); % Lymphocytes 19.7 % (20.5-51.1); % Monocytes 7.2 % (1.7-9.3); % Neutrophils 69.6 % (42.2-75.2); Absolute Basophils 0.1 10^3/uL (0-0.2); Absolute Eosinophils 0.2 10^3/uL (0-0.7); Absolute Lymphocytes 1.6 10^3/uL (1.2-3.4); Absolute Monocytes 0.6 10^3/uL (0.1-0.6); Absolute Neutrophils 5.5 10^3/uL (1.4-6.5); Hematocrit 42.1 % (39.0-52.0); Hemoglobin 14.8 g/dL (13.0-18.0); Mean Corp Hgb Conc. 35.2 g/dL (33.0-37.0); Mean Corpuscular Hgb 30.6 pg (27.0-31.0); Mean Corpuscular Volume 87.2 fL (80.0-94.0); Mean Platelet Volume 10.6 fL (7.4-10.4); Nucleated Red Blood Cells % 0 % (-); Platelet Count 279 10^3/uL (130-400); Red Blood Cell Count 4.83 10^6/uL (4.70-6.10); Red Cell Dist. Width 12.7 % (11.5-14.5); White Blood Cell Count 7.9 10^3/uL (4.8-10.8)
[2024-06-14 09:42] LABS: Blood Urea Nitrogen 14 mg/dl (9-20); Calcium 9.1 mg/dl (8.4-10.2); Carbon Dioxide 23 mmol/L (22-30); Chloride 105 mmol/L (98-107); Estimated Creatinine Clearance > 125 ml/min; Glucose 231 mg/dl (70-99); Potassium 3.7 mmol/L (3.5-5.1); Sodium 138 mmol/L (135-145); eGFR > 60.00
[2024-06-14 11:36] LABS: Glucose - Point of Care 161 mg/dl (70-99)
--- NOTE | 2024-06-14 11:52 | W.PN.HOSP.TC ---
Today's Communication/Plan
-
Monitor vitals
See plan
Continue with neurochecks
PT/OT, needs acute rehab
Continue with insulin and uptitrate as necessary
Continue with dual antiplatelet therapy
Discussed with spouse at bedside
Assessment / Plan
Assessment / Plan
General: Well Nourished and No Apparent Distress
HEENT: Anicteric and Moist mucous membranes
Respiratory: Clear and Non Labored Respirations; No Wheezes
Cardiac: S1/S2 and Regular Rhythm
GI: Soft, Non Tender and Non Distended
Genito-urinary: No Martinez
Musculoskeletal: No Edema
Neuro: Awake, Alert, Oriented and AO x 3
Psych: Calm and Intact Judgment/Insight
Slurred speech, aphasia likely secondary to acute CVA
CT scan without any hemorrhage
MRI with left sided acute CVA
Seen by neurology in the ED, on not a TNK candidate given symptoms started a day prior to admission
Continue with dual antiplatelet therapy for total of 21 days and then aspirin alone
Statin
A1c 12.3, started insulin. Diabetes nurse practitioner following
Monitor on telemetry, follows up with Dr. Watkins for hypertension
Neurochecks, [facility]
Echo with small PFO, discussed with neurology and do not think this is the reason for CVA. Believe this is likely due to uncontrolled diabetes. No arrhythmia so far on telemetry. Patient to follow-up with cardiology outpatient
Fall 06/14
CT scan without any hemorrhage
Continue to monitor
PT/OT recommend acute rehab. PMNR consulted
Hyperlipidemia
Statin
Hypertension
Continue amlodipine
Neuropathy
Diabetes mellitus
Uncontrolled
A1c 12.3
Insulin sliding scale
Accu-Cheks
DVT prophylaxis
Lovenox
Full code
Anticipated Discharge: Within 24 hours
Subjective/Interval History
-
Date of Service: June 14, 2024
denies pain
Objective Data
-
Labs:
Laboratory Results
06/14/24 06/14/24
06:31 08:58
WBC 7.9
Hgb 14.8
Hct 42.1
Plt Count 279
Sodium 138 Cancelled
Potassium 3.7 Cancelled
Chloride 105 Cancelled
Carbon Dioxide 23 Cancelled
BUN 14 Cancelled
Creatinine 0.6 L Cancelled
Glucose 231 H Cancelled
Calcium 9.1 Cancelled
Vital Signs:
Vital Signs
Temp Pulse Resp BP Pulse Ox
98.6 F 86 18 133/84 99
06/14/24 07:00 06/14/24 07:00 06/14/24 07:00 06/14/24 07:00 06/14/24 07:40
I&O
06/13/24 06/14/24 06/15/24
06:59 06:59 06:59
Intake Total 960 / 960
Balance 960 / 960
--- NOTE | 2024-06-14 12:00 | CM ---
CM following re: discharge planning.
Reviewed pt's chart, met with pt and pt's spouse at bedside.
Pt is a 64 year old male, admitted with primary dx of left sided acute CVA.
Pt reports he lives with spouse 2SH, 2 steps to enter, has 2 supportive children. 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 Pt admitted to having significant stress work environment in the past
month due to uncertainty in a financial sector of the [place] economy.
PT and OT evaluations noted - acute rehab level of care recommended. Both pt and his spouse are aware, expressed their agreement and they requested [facility]. A referral to [facility] made, spoke to [facility] liaison and she confirmed they
will have a bed available to pt when medically stable.
PM&R consult requested.
PCP: Saskia Kline
Pharmacy: [facility] [place].
D/C plan: [facility]. pt will need an auth from [facility]
CM will follow to assist pt with discharge to [facility] when medically stable.
[2024-06-14] MEDS: NOVOLOG FLEXPEN 8 UNITS SC ×2 (12:37→16:29)
[2024-06-14] MEDS: NOVOLOG FLEXPEN-LOW RESISTANCE 1 UNITS SC ×2 (12:38→16:30)
--- NOTE | 2024-06-14 13:43 | PTOTSP ---
FIELD ARTILLERY CREWMEMBER Evaluations
Patient w/ signs concerning for mild oral/pharyngeal dysphagia and inconsistent signs concerning for possible aspiration. Video swallow study warranted to objectively assess swallow function and rule out aspiration.
+Mild-moderate dysarthria.
Quick Aphasia Battery Form 1 QAB overall score = 9.0 (WFL) but mild deficits noted in word finding and moderate deficits with higher level auditory comprehension. Further cognitive linguistic screener warranted as able/appropriate.
Recommend:
1. Regular (pick softer/moister foods), Thin Liquids
2. Medications as best tolerated
3. Oral care 3x daily
4. Strategies: upright to 90 degrees, small sips/bites, stop if increased coughing w/ intake
5. Video swallow study
6. Continued speech/language/cognitive evaluation/tx at the acute level. IPR appropriate.
--- NOTE | 2024-06-14 14:46 | PTCARENOTE ---
06/14/2024 DIABETES EDUCATION
I met with Vladimir and his to review diabetes management, inpatient due to stroke. His HbA1c on May 11, 2024 was over 14%, A1c while inpatient 12.3%. He currently uses a glucometer at home, declined demonstration. He is interested in CGM,
written material provided and recommended he contact his provider and insurance company for coverage policy.
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 Does not sleep well and has a lot of stress. I educated on physiology of T2D, managing with
medications, monitoring BG, nutrition, activity, sleep and managing stress.
I Discussed long and short acting insulin; onset/peak/duration. I educated and demonstrated on insulin injection technique, timing, and storage. He repeated the insulin demonstration, had dexterity issues with his right hand. He will go to
inpatient rehab tomorrow, educated him to discuss dexerity issues with insulin pen with OT. I encouraged him to administer his own injections with RN supervision while admitted, provided the RN with pen needles.
Discussed normal target glucose ranges and a monitoring schedule 4/day, before each meal and at bedtime. Provided a glucose and insulin dose log. I reinforced signs of hyperglycemia, hypoglycemia; BS parameters and recommended HbA1c goals,
written material provided. Encouraged patient to follow up with his PCP for post d/c appointment and to monitor medication and blood glucose levels. Provided list of endocrinologists if desired, to contact insurance company to verify in
network status. Information provided on the outpatient DSME program. Patient verbalized understanding.
[2024-06-14 16:27] LABS: Glucose - Point of Care 160 mg/dl (70-99)
[2024-06-14] MEDS: NORVASC 10 MG PO (17:17)
[2024-06-14] MEDS: LOVENOX 40 MG SC (17:17)
[2024-06-14] MEDS: LIPITOR 40 MG PO (17:17)
[2024-06-14] MEDS: PERIDEX 0.12% ORAL RINSE PO (21:25)
[2024-06-14 21:57] LABS: Glucose - Point of Care 219 mg/dl (70-99)
[2024-06-14] MEDS: LANTUS 0.2 UNITS SC (22:08)
[2024-06-15] MEDS: NEURONTIN 300 MG PO (01:04)
[2024-06-15 04:19] VITALS: BP 146/73
[2024-06-15 07:00] VITALS: BP 136/77
[2024-06-15 07:06] LABS: Glucose - Point of Care 167 mg/dl (70-99)
[2024-06-15 07:20] LABS: % Basophils 0.8 % (0-2); % Eosinophils 2.4 % (0-6); % Immature Granulocytes 0.5 % (0-0.5); % Lymphocytes 18.8 % (20.5-51.1); % Monocytes 8.6 % (1.7-9.3); % Neutrophils 68.9 % (42.2-75.2); Absolute Basophils 0.1 10^3/uL (0-0.2); Absolute Eosinophils 0.2 10^3/uL (0-0.7); Absolute Lymphocytes 1.4 10^3/uL (1.2-3.4); Absolute Monocytes 0.6 10^3/uL (0.1-0.6); Absolute Neutrophils 5.1 10^3/uL (1.4-6.5); Hematocrit 42.9 % (39.0-52.0); Mean Corpuscular Hgb 30.7 pg (27.0-31.0); Mean Corpuscular Volume 87.9 fL (80.0-94.0); Mean Platelet Volume 10.1 fL (7.4-10.4); Nucleated Red Blood Cells % 0 % (-); Platelet Count 263 10^3/uL (130-400); Red Blood Cell Count 4.88 10^6/uL (4.70-6.10); Red Cell Dist. Width 12.6 % (11.5-14.5); White Blood Cell Count 7.4 10^3/uL (4.8-10.8)
[2024-06-15 07:35] LABS: Blood Urea Nitrogen 15 mg/dl (9-20); Calcium 8.8 mg/dl (8.4-10.2); Carbon Dioxide 28 mmol/L (22-30); Chloride 103 mmol/L (98-107); Estimated Creatinine Clearance > 125 ml/min; Glucose 182 mg/dl (70-99); Potassium 3.5 mmol/L (3.5-5.1); Sodium 139 mmol/L (135-145); eGFR > 60.00
[2024-06-15] MEDS: PLAVIX 75 MG PO (07:35)
[2024-06-15] MEDS: ASPIR LOW (ENTERIC COATED) 81 MG PO (07:35)
[2024-06-15] MEDS: PERIDEX 0.12% ORAL RINSE 15 ML PO ×2 (07:36→15:37)
--- NOTE | 2024-06-15 07:36 | CON.MD ---
Consultation - Medical
-
Referring Provider:�Dr. Hola Mendoza
Chief Complaint:�Stroke
�
History of Present Illness:�64-year-old right-handed male with PMH (as below) presented to [facility] 06/13/24 with right-sided facial droop, right-sided arm weakness and slurred speech starting at 3:30 PM 1 day prior. He was not a candidate
for TNK because he was outside the window. He does have aspirin prescribed but has not taken it 1 week prior to this event. He has uncontrolled diabetes with a hemoglobin A1c of 12, not on insulin. Initial CT of the scan without hemorrhage.
Started on aspirin and Plavix for 21 days with plan for aspirin long-term per neurology. Echocardiogram with small PFO, EF 55-60%. Neurology does not think the small PFO is the cause of stroke and is likely from uncontrolled diabetes. Speech
consult for aphasia. MRI of the brain noting a 1.3 cm left resendez radiata extending into the posterior aspect of left putamen acute infarction.
Continues to have right-sided weakness, maybe a little bit better. Limiting his ability to do day-to-day activities. He was trying to walk and had to lower himself down on the side of the bed yesterday because of the weakness on the right side.
Denies any vision or swallowing difficulties.
�
Past Medical History:�HTN, hypercholesterolemia, NIDDM uncontrolled, obesity, irritable bowel syndrome, neuropathy
Procedure History:�Cholecystectomy
Family History:�None pertinent
�
Social History:�
Functional Level Premorbidly:�Independent with all activities�
Functional Level Currently:�Min assist ADLs, min assist bed mobility and toilet transfer. Min assist ambulating 40 feet without device. Has mild right sided ataxia
�
Tobacco:�Denies�
Alcohol:�Denies�
Drug use:�Denies�
�
Lives with:�
Number of floors:�2
# steps to enter:�3
# steps to second floor: Full flight
Potential First floor set up:�Possible
Driving:�Yes
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
�
�
Allergies:�
Allergy/AdvReac Type Severity Reaction Status Date / Time
codeine [Codeine] Allergy Intermediate Hives Verified 03/27/24 00:25
adhesive tape Allergy Rash Verified 03/27/24 00:25
amoxicillin Allergy chest Verified 03/27/24 00:25
tightness
�
Review of Systems:�
Constitutional: (x) abNormal _fatigue
Eye: (x) Normal _
Ear/Nose/Throat: (x) Normal _
Respiratory: (x) Normal _
Cardiovascular: (x) Normal _
Gastrointestinal: (x) Normal _
Genitourinary: (x) Normal _
Musculoskeletal: (x) abNormal _left hip weakness from stenosis in the back
Integumentary: (x) Normal _
Neurologic: (x) abNormal _right-sided weakness, mild speech change
Psychiatric: (x) Normal _
Endocrine: (x) Normal _
Hematologic/Lymphatic: (x) Normal _
Allergic/Immunologic: (x) Normal _
�
Medications:�
Active Current Visit Medication List
Category Date Time Status
Acetaminophen [Tylenol/Feverall] Med 06/13/24 17:17 Active
650 mg RECTAL Q4HPRN PRN
Acetaminophen [Tylenol] Med 06/13/24 17:17 Active
650 mg PO Q4HPRN PRN
Amlodipine [Norvasc] Med 06/13/24 18:00 Active
10 mg PO QPM
Aspirin Low Dose EC [Aspir Low (Enteric Coated)] Med 06/14/24 08:00 Active
81 mg PO DAILY
Atorvastatin [Lipitor] Med 06/13/24 18:00 Active
40 mg PO QPM
Chlorhexidine Oral Rinse 0.12% [Peridex 0.12% Oral Med 06/13/24 17:17 Active
Rinse]
15 ml PO TID
Cholestyramine [Questran] Med 06/14/24 08:00 Active
4 gram PO DAILY
Clopidogrel Bisulfate [Plavix] Med 06/14/24 08:00 Active
75 mg PO DAILY
Dextrose 50%-Water [Dextrose 50% Syringe] Med 06/13/24 13:35 Active
12.5 grams IV [id number] PRN
Enoxaparin Sodium [Lovenox] Med 06/13/24 18:00 Active
40 mg SC QPM
Flush (0.9% Sodium Chloride) [Flush (Nss)] Med 06/13/24 13:00 Active
See Dose Instructions IV PER PROTOCOL
Gabapentin [Neurontin] Med 06/13/24 17:17 Active
300 mg PO TIDPRN PRN
Glucagon [GlucaGen] Med 06/13/24 13:35 Active
1 mg IM PRN PRN
Insulin Aspart Corrective Low [Novolog Flexpen-Low Med 06/13/24 16:30 Active
Resistance]
See Protocol SC AC
Insulin Aspart Pen [Novolog Flexpen] Med 06/14/24 11:30 Active
8 units SC AC
Insulin Glargine Lantus [Lantus] 20 units Med 06/14/24 22:00 Active
Subcutaneous Insulin Syringe [Syringe-Insulin] 0 unit
SC HS
�
Vitals:�
Temp Pulse Resp BP Pulse Ox
97.8 F 75 18 146/73 93
06/15/24 04:19 06/15/24 04:19 06/15/24 04:19 06/15/24 04:19 06/15/24 04:19
Height 5 ft 8 in
Actual Weight 114.85 kg
Body Mass Index (BMI) 38.5
�
Physical Exam:�
General Appearance/Observation: Well-developed, well-nourished male in no apparent distress.�
Pain/Comfort Assessment: Denies�
Mood/Affect: Appropriate�
�
Integumentary/Operative Site:�No lesions noted during course of exam
Eyes: Conjunctiva/Lids: normal���� Pupils: pupils equal round and reactive to light and Accommodation�
Ears/Nose/Throat: oral mucosa moist,� throat clear.������������ Lips/Teeth/Gums: normal�
Cardiovascular: Heart: regular, no murmur�
Pulses: dorsalis pedis 2+ bilaterally�
Respiratory: Respiratory Effort/Chest Expansion: normal������� Auscultation: Clear to auscultation bilaterally�
Gastrointestinal: abdomen not tender, no distension, normal abdominal bowel sounds
Genitourinary: No Martinez�
Rectal Exam: Deferred�
Extremities:�Edema: None�Cyanosis: None�
�
Neurology Exam:
Orientation: Alert, Oriented to self, Time, Place�
Memory: Intact immediately and at 3 minutes�
Repetition: Intact
Comprehension: Intact
Two step command: Intact
Naming: Intact
Cranial Nerves:
�� CNII:�Pupillary light reflex: Intact����Visual Field: Intact
�� CN III, IV, : Extraocular muscles: Intact�
�� CN V:�Facial Sensation�at�Forehead: Mild decreased on right,�Maxilla: Mild decreased on right,�Mandible: Mild decreased on right
�� CN VII:�Facial movement: Right facial weakness
�� CN VIII:�Hearing: Normal
�� CN IX/X:�Speech & swallow: Mild dysarthria,�Position of Uvula: Midline
�� CN XI:�Shoulder shrug: Symmetric
�� CN XII:�Tongue protrusion: Midline
Sensory:
�� Light touch: Mild decreased right versus left
�
Reflexes:
�� Biceps: 2+ bilaterally
�� Brachioradialis: 2+ bilaterally
�� Triceps: 2+ bilaterally
�� Patellar: 2+ bilaterally
�� Achilles: 2+ bilaterally
�� Babinski: Down going bilaterally
�� Clonus: None
�� Swati: Negative bilaterally�
Cerebellar: Dysmetria/Ataxia: Impaired finger-nose on the right
Musculoskeletal: Motor: (Manual muscle scale 0-5)�
Muscle SA EF WE EE FF FA HF KE DF EHL PF
Right� 4 4+ 4 4 4+ 4 4 4 4 4 4
Left 5 5 5 5 5 5 3 5 5 5 5
�
Tone: Normal in all extremities�
Range of Motion: Passively within normal limits in all extremities�
�
Lab Results
Laboratory Data
06/15/24 05:56
06/15/24 05:56
Total Bilirubin 0.9 mg/dl (0.2-1.3) 06/13/24 07:59
AST 18 U/L (17-59) 06/13/24 07:59
ALT 18 U/L (0-50) 06/13/24 07:59
Alkaline Phosphatase 127 U/L (38-126) H 06/13/24 07:59
Total Protein 6.9 g/dl (6.3-8.2) 06/13/24 07:59
Albumin 4.3 g/dl (3.5-5.0) 06/13/24 07:59
�
Diagnostic Results:�as per HPI�
PROCEDURE: MR Brain Without Contrast
CLINICAL INDICATION: stroke/TIA
TECHNIQUE: Unenhanced MRI imaging of the brain was performed. Images were obtained in multiple planes using a variety of pulse sequences including T1 weighting, T2 weighting, FLAIR, and diffusion-weighted imaging.
COMPARISON: CTA head and neck 07/03/2024.
FINDINGS:
There is a 1.3 cm focus of restricted diffusion within the left resendez radiata which extends slightly into the posterior aspect of the left putamen.
Scattered T2/FLAIR hyperintensities within the subcortical and periventricular white matter of the bilateral cerebral hemispheres which is nonspecific, however likely sequelae of mild small vessel ischemic disease. There is no significant volume
loss. Small focus of blooming artifact within the right cerebral hemisphere consistent with prior microhemorrhage.
There is no mass or mass effect, or extra-axial fluid collection.
The ventricles are normal in size.
Flow voids of the larger intracranial vessels are present.
Paranasal sinuses and mastoid air cells are predominantly clear. Mucous retention cysts within the inferior aspect of the bilateral maxillary sinuses measuring 1.2 cm on the right and 1.0 cm on the left.
Hyperostosis frontalis interna.
IMPRESSION:
There is a 1.3 cm focus of restricted diffusion within the left resendez radiata which extends slightly into the posterior aspect of the left putamen consistent with acute infarction. There is no evidence of hemorrhagic transformation.
Assessment
64-year-old right-handed male with PMH (HTN, hypercholesterolemia, NIDDM uncontrolled, obesity, irritable bowel syndrome, neuropathy) with 06/13/24 dysarthria and right hemiparesis from a left resendez radiata extending into the posterior aspect of left
putamen acute infarction resulting in ADL and ambulatory dysfunction.
�
Plan�
PM&R�PT/OT to increase independence with ADLs, improve balance, coordination, endurance, strength, mobility, community reintegration, decreased burden of care on others and family education.�
�
CVA: Secondary prophylaxis with aspirin and Plavix for 21 days (last dose 07/04/24) followed by aspirin lifelong, statin, and blood pressure control (SBP less than 180 and diastolic less than 100 to participate with therapy for ischemic stroke).
Continue to monitor neurologic status.�
Right dominant hemiparesis: High risk for falls and sliding out of chair/bed. Safety reinforced.�
- Avoid using affected arm to help lift or pull patient as this will cause trauma to the shoulder.
Mild oropharyngeal dysphagia: speech, oral care protocol, aspiration precautions.� On regular diet, video swallow ordered by speech.
Dysarthria: speech�
Aphasia: speech �
HTN: Amlodipine 10 mg at night, monitor
HLD: Statin�
�
Uncontrolled DM II: Accu-Cheks, insulin sliding scale, aspart 8 units with meals, lantus 20 units at night.�
- Concern for diabetic neuropathy
Lumbar spinal stenosis versus radiculopathy?: Patient being followed by orthopedics as an outpatient, doing therapy to strengthen the left hip. Will need continued therapy.
Psych: Psychology consult.� Monitor mood, adjust medications as needed.�
Skin: monitor for pressure sores/rashes/lesions.�
Pain: acetaminophen or oxycodone as needed.�
Bowel: Colace and Senna, PRN bisacodyl.�
Bladder: Time void, PVRs, PRN straight cath.�
GI Prophylaxis: Pantoprazole�
DVT Prophylaxis: Mechanical and Lovenox
Pulmonary: Incentive spirometry�
Morbid obesity: Continue to counselor aide patient about diet adjustments to control obesity. Body habitus and increased force to move body and extremities causes further difficulty with functional tasks.�
Safety: Continue to reinforce assistance with all transfers.�
Code Status:� Full code
Dispo�(date/plan/equipment needs): Home with family care.� Social history reviewed.�
Functional and Medical Goals:�Modified Independent with ADL�s, ambulation, transfers�
Discharge Destination:�Acute inpatient rehabilitation
�
Summary of recommendations:
-�Discharge Destination:�Acute inpatient rehabilitation
CVA: Secondary prophylaxis with aspirin and Plavix for 21 days (last dose 07/04/24) followed by aspirin lifelong, statin, and blood pressure control (SBP less than 180 and diastolic less than 100 to participate with therapy for ischemic stroke).
Continue to monitor neurologic status.�
Right dominant hemiparesis: High risk for falls and sliding out of chair/bed. Safety reinforced.�
- Avoid using affected arm to help lift or pull patient as this will cause trauma to the shoulder.
Mild oropharyngeal dysphagia: speech, oral care protocol, aspiration precautions.� On regular diet, video swallow ordered by speech.
Dysarthria: speech�
Aphasia: speech �
Morbid obesity: Continue to counselor aide patient about diet adjustments to control obesity. Body habitus and increased force to move body and extremities causes further difficulty with functional tasks.�
Lumbar spinal stenosis versus radiculopathy?: Patient being followed by orthopedics as an outpatient, doing therapy to strengthen the left hip. Will need continued therapy.
�
Thank you for allowing me to care for your patient. Please contact me with any questions or concerns.
[2024-06-15] MEDS: NOVOLOG FLEXPEN 8 UNITS SC ×3 (07:57→15:55)
[2024-06-15] MEDS: NOVOLOG FLEXPEN-LOW RESISTANCE 1 UNITS SC ×2 (07:57→15:55)
[2024-06-15] MEDS: QUESTRAN 4 GRAM PO (08:38)
--- NOTE | 2024-06-15 09:09 | CM ---
Addendum entered by Branden Carr 06/15/24 12:56:
[facility] corrected discharge time. Discharge time after 5:00 p.m.
Addendum entered by Branden Carr 06/15/24 12:51:
Discharge order noted.
Pt is aware, expressed his agreement. IMM reviewed placed on chart, pt has a copy.
CM called [facility] and got an auth: Pt is approved for acute level of care at [facility] rehab for 7 initial days from today 06/15/24 till06/21/24. Auth is: [id number].
Auth information forwarded to [facility] and she confirmed that pt is accepted and request is made to get the pt to [facility].
[facility] nursing report: [phone]
Discharge instructions fax: [phone]
D/c plan: [facility].
Original Note:
CM following re: discharge planning.
Reviewed pt's chart, met with pt.
According to MD pt mostly likely will be ready for discharge today.
PT, OT, ST, PM&R evaluations noted - acute rehab level of care recommended. Pt preferred [facility].
A referral to [facility] made yesterday and per liaison they will have a bed available today.
OLMAN initiated an auth for [facility] with [facility] yesterday, spoke to sales representative door to door [place], pending auth: [id number].
Pt's clinical faxed to [facility] today [phone]
Awaiting for an auth.
D/C plan: [facility].
CM will follow to assist pt with discharge to [facility] rehab.
--- NOTE | 2024-06-15 10:20 | PN.DE.MGMTRT ---
Insulin Management
- -
06/15/2024: Diabetes Management follow up
64-year-old male w/PMH: HTN, HLD, Obesity, NIDDM, IBS came to the hospital with right-sided facial droop along with mild right arm weakness and slurred speech. CT head--> left resendez radiata acute infarct. According to the patient, He has known
about having diabetes and was taking Metformin 1000 mg BID. He states that his recent A1C was 14% in 05/2024, and that Prandin 0.5mg TID was added at the time. He reports that he has lost ~75lbs over the last 3 months. A1C is 12.3% on admission. Cr
0.6, eGFR >60
His FBG was 313 V, 274 POC on admission. Pt was started on basal bolus insulin, Lantus 17 units @ HS and NovoLog 5 units AC.
Had a lengthy discussion with pt and regarding optimal glucose control to reduce risk of further diabetes related complications.
Encouraged pt to ask PCP for script for CGM now that he is on insulin therapy.
states that she too has been recently Dx with T2DM and is going to see her PCP today to get started on diabetes medications.
Pt awake, alert, oriented, sitting up in chair, able to discuss diabetes care plan, no family at bedside.
Pt states he is getting more comfortable and better at self injecting insulin.
Insulin dose was adjusted yesterday to 20 units @ HS and AC NovoLog to 8 units.
Glucose has improved, 06/14 premeal range was 160 to 211, FBG 182 V this AM
Will increase Lantus to 22 units. Resume Metformin 1000 mg BID, 1st dose NOW. Cont AC NovoLog 8 units and moderate corrective insulin with meals
Will closely monitor glucose trend and adjust insulin dose if necessary. Will ask RD to see pt to discuss diabetes diet.
Pt will be seen by Diabetes Nurse Educator to reinforce Glucose Monitor and Insulin instructions.
Diabetes History
- -
Type of Diabetes: 2 requiring insulin
Pre-Admission Diabetes Regimen
06/15/24
05:56
Creatinine 0.6 L
Lab Results
Hemoglobin A1c 12.3 % (4.0-5.6) H 06/13/24 07:59
Insulin Pump Settings
IP Diabetes Regimen
06/14/24 06/14/24 06/14/24
11:30 16:25 21:50
Glucose
POC Glucose 161 H 160 H 219 H
06/15/24 06/15/24
05:56 07:05
Glucose 182 H
POC Glucose 167 H
Meal type: Lunch
Meal type: Breakfast
Amount consumed: 80%
Amount consumed: 95%
Patient Education
--- NOTE | 2024-06-15 10:36 | PTOTSP ---
Videofluoroscopic swallow study
Patient presents w/ mild oral/pharyngeal dysphagia secondary to acute stroke. See patient care note for details.
Recommend:
1. Regular (pick soft foods and/or moisten well w/ sauces), Thin Liquids
2. Medications: in puree
3. Strategies: upright to 90 degrees, small single sips/bites, slow rate, multiple swallows (to help clear food from throat)
4. Oral care 3x daily
5. Dysphagia tx for education, instruction in compensations, pharyngeal exercises to target BOT retraction and PES opening to improve pharyngeal clearance of solids.
[2024-06-15 11:00] VITALS: BP 136/84
--- NOTE | 2024-06-15 11:06 | PN.DE ---
Diabetes Education
- -
06/15/2024 DIABETES EDUCATION
I met with Mr. Romero as requested for additional nutrition information. He has been injecting his own insulin with RN supervision, still having R. hand dexterity issues. Plan is to go to [facility] by tomorrow. He did see the IP RD but is
awaiting an additional visit. I provided him with the brochure Planning Healthy Meals, reviewed plate method, non starchy vegetables, proper portions of carbohydrates and protein. He inquired about healthy snacks, he is eating non-fat Georgian Yogurt
with added fruit and also eats oatmeal. I recommended he review the label for added sugar, carbohydrate content and proper portion size. Discussed trying plain yogurt and adding his own berries. Discussed additional snacks such hard boiled egg, 2
TBSP hummus or peanut butter and celery. Discussed proper portion size of oatmeal, avoid flavored oatmeal packets and opt for steel cut oats due to higher fiber content. Encouraged him and spouse to attend November DSME course. He verbalized
understanding.
--- NOTE | 2024-06-15 11:35 | W.PN.HOSP.TC ---
Today's Communication/Plan
-
Monitor vitals
See plan
PT/OT
Continue with dual antiplatelet therapy
Continue insulin
Plan for [facility] today
Time of discharge 38 minutes
Assessment / Plan
Assessment / Plan
General: Well Nourished and No Apparent Distress
HEENT: Anicteric and Moist mucous membranes
Respiratory: Clear and Non Labored Respirations; No Wheezes
Cardiac: S1/S2 and Regular Rhythm
GI: Soft, Non Tender and Non Distended
Genito-urinary: No Martinez
Musculoskeletal: No Edema
Neuro: Awake, Alert, Oriented and AO x 3
Psych: Calm and Intact Judgment/Insight
Slurred speech, aphasia likely secondary to acute CVA
CT scan without any hemorrhage
MRI with left sided acute CVA
Seen by neurology in the ED, on not a TNK candidate given symptoms started a day prior to admission
Continue with dual antiplatelet therapy for total of 21 days and then aspirin alone
Statin
A1c 12.3, started insulin. Diabetes nurse practitioner following
Monitor on telemetry, follows up with Dr. Watkins for hypertension
Neurochecks, NIH
VSE noted, okay for regular diet per speech
Echo with small PFO, discussed with neurology and do not think this is the reason for CVA. Believe this is likely due to uncontrolled diabetes. No arrhythmia so far on telemetry. Patient to follow-up with cardiology outpatient
Fall 06/14
[address] scan without any hemorrhage
Continue to monitor
PT/OT recommend acute rehab. PMNR consulted. Patient for most rehab today
Hyperlipidemia
Statin
Hypertension
Continue amlodipine
Neuropathy
Diabetes mellitus
Uncontrolled
A1c 12.3
Insulin sliding scale
Accu-Cheks
DVT prophylaxis
Lovenox
Full code
Anticipated Discharge: Today
Subjective/Interval History
-
Date of Service: June 15, 2024
Denies pain
Objective Data
-
Labs:
Laboratory Results
06/15/24
05:56
WBC 7.4
Hgb 15.0
Hct 42.9
Plt Count 263
Sodium 139
Potassium 3.5
Chloride 103
Carbon Dioxide 28
BUN 15
Creatinine 0.6 L
Glucose 182 H
Calcium 8.8
Vital Signs:
Vital Signs
Temp Pulse Resp BP Pulse Ox
98.3 F 91 20 136/77 96
06/15/24 07:00 06/15/24 07:00 06/15/24 07:00 06/15/24 07:00 06/15/24 07:00
I&O
06/14/24 06/15/24 06/16/24
06:59 06:59 06:59
Intake Total 960 / 960 340 / 340
Balance 960 / 960 340 / 340
--- NOTE | 2024-06-15 11:43 | W.DCSUMMARY ---
Discharge Summary
Discharge Data
Date of Admission: 06/13/24
Date of Discharge: 06/15/24
-
Pending Results: No
Hospital Course
64-year-old male with past medical history of uncontrolled diabetes mellitus, hypertension, neuropathy came to the hospital with slurred speech and aphasia secondary to acute stroke. Patient was not TNK candidate on admission. Patient was seen by
neurology and was started on dual antiplatelet therapy. MRI later confirmed acute CVA. Patient A1c was also checked which came out to be 12.3. Patient was subsequently started on insulin. Echocardiogram was done which showed preserved EF however
did show small PFO, this was discussed with neurology and they did not think this was the reason for patient's CVA. Patient was also evaluated by physical therapy who recommended acute rehab. Once his symptoms continue to improve, he was then
discharged to [facility] with instructions to follow-up with all his physicians outpatient.
Discharge Plan
-
Patient Disposition: Acute Rehab Facility
Discharge Diagnosis/Procedures: Acute stroke
Uncontrolled diabetes mellitus
Diet: As tolerated
Activity: With assistance and As tolerated
Driving Restrictions: Not until seen by your Dr
Bathing Restrictions: None
Activity Restrictions/Additional Instructions:
Continue aspirin and Plavix for another 19 days and then discontinue Plavix and continue aspirin indefinitely
Referrals:
Saskia Schroeder MD [Family Provider] - in less than 1 week
Mallory Pradhan CRNP [Specified Professional Personl] -
Rajiv Delgadillo MD [Active] - in two to four weeks
Prescriptions:
New
atorvastatin 40 mg Tablet
40 mg PO QPM Qty: 0 0RF
clopidogrel 75 mg Tablet
75 mg PO DAILY Qty: 0 0RF
Rx Instructions:
continue aspirin and plavix for another 19 days and then discontinue plavix and continue aspirin indefinitely
insulin aspart U-100 100 unit/mL (3 mL) Insulin Pen
8 unit SC AC Qty: 0 0RF
Insulin Glargine Lantus [Lantus] 22 UNITS
Subcutaneous Insulin Syringe [Syringe-Insulin] 0 UNIT
As Directed mls/hr SC HS
Ordered By: Hola Mendoza MD
Last Taken: 06/14/24 22:08 0.2 mls
Continued
cholestyramine (with sugar) 4 GM powder in packet
4 gm PO DAILY
aspirin 81 MG tablet,delayed release (DR/EC)
81 mg PO DAILY
Rx Instructions:
continue aspirin and plavix for another 19 days and then discontinue plavix and continue aspirin indefinitely.
metformin 1,000 mg tablet
1,000 mg PO BID
gabapentin 300 mg Capsule
300 mg PO TIDPRN PRN (Reason: mild pain)
chlorhexidine gluconate 0.12 % Mouthwash
15 ml BUCCAL TID
Rx Instructions:
take until next appointment
amlodipine 10 mg tablet
10 mg PO QPM
Discontinued
atorvastatin [Lipitor] 20 mg Tablet
20 mg PO HS
Discharge Orders:
Discharge Patient (As Directed); Ordered 06/15/24
Ordered By: Hola Mendoza
Discharge Date and Time
Discharge Date/Time: 06/15/24 18:05
Print Language: MARSHALLESE
[2024-06-15 11:49] LABS: Glucose - Point of Care 210 mg/dl (70-99)
[2024-06-15] MEDS: NOVOLOG FLEXPEN-LOW RESISTANCE 2 UNITS SC (11:50)
[2024-06-15 14:22] VITALS: BP 132/82
[2024-06-15 15:00] VITALS: BP 127/76
[2024-06-15 15:54] LABS: Glucose - Point of Care 170 mg/dl (70-99)
== END 2024-06-15 18:05 | DRG 65 ==
LOC: 4 WEST ACU 11:24
PROVIDERS: ADMITTING PHYSICIAN Internal Medicine; CONSULT PHYSICIAN Physical Medicine & Rehabilitation; CONSULT PHYSICIAN Psychiatry & Neurology Clinical Neurophysiology; EMERGENCY PHYSICIAN Emergency Medicine; FAMILY PHYSICIAN Family Medicine
DX: I63.9 Cerebral infarction, unspecified (principal); G81.91 Hemiplegia, unspecified affecting right dominant side; Q21.12 Patent foramen ovale; R29.810 Facial weakness; R47.1 Dysarthria and anarthria; E11.65 Type 2 diabetes mellitus with hyperglycemia; E78.00 Pure hypercholesterolemia, unspecified; R47.01 Aphasia; R27.0 Ataxia, unspecified; I11.9 Hypertensive heart disease without heart failure; E11.40 Type 2 diabetes mellitus with diabetic neuropathy, unspecified; E66.01 Morbid (severe) obesity due to excess calories; K58.8 Other irritable bowel syndrome; Z79.82 Long term (current) use of aspirin; Z90.49 Acquired absence of other specified parts of digestive tract; Z82.49 Family history of ischemic heart disease and other diseases of the circulatory system; Z68.38 Body mass index [BMI] 38.0-38.9, adult; Z88.1 Allergy status to other antibiotic agents; Z88.5 Allergy status to narcotic agent; Z91.048 Other nonmedicinal substance allergy status; Z79.84 Long term (current) use of oral hypoglycemic drugs
CPT/HCPCS: 70450; 70496; 70498; 70551; 74230; 80048; 80053; 80061; 82962; 83036; 85025; 92523; 92610; 92611; 93005; 93306; 97110; 97129; 97163; 97167; 99291; Q9967

== ENCOUNTER 2024-06-28 18:28 | Emergency (ER) | payer OTHER, SELFPAY ==
[2024-06-28 18:28] VITALS: BMI 36.9
[2024-06-28 18:31] VITALS: BP 141/83
[2024-06-28 21:15] VITALS: BP 133/78
[2024-06-28 21:30] VITALS: BP 129/76
[2024-06-28 22:00] VITALS: BP 141/82
[2024-06-28 22:30] VITALS: BP 135/76
[2024-06-28 22:51] LABS: % Eosinophils 2.5 % (0-6); % Immature Granulocytes 0.4 % (0-0.5); % Lymphocytes 12.6 % (20.5-51.1); % Monocytes 7.8 % (1.7-9.3); % Neutrophils 75.7 % (42.2-75.2); Absolute Basophils 0.1 10^3/uL (0-0.2); Absolute Eosinophils 0.3 10^3/uL (0-0.7); Absolute Lymphocytes 1.4 10^3/uL (1.2-3.4); Absolute Monocytes 0.8 10^3/uL (0.1-0.6); Absolute Neutrophils 8.2 10^3/uL (1.4-6.5); Hematocrit 42.6 % (39.0-52.0); Hemoglobin 14.9 g/dL (13.0-18.0); Mean Corpuscular Hgb 31.2 pg (27.0-31.0); Mean Corpuscular Volume 89.3 fL (80.0-94.0); Mean Platelet Volume 9.9 fL (7.4-10.4); Nucleated Red Blood Cells % 0 % (-); Platelet Count 339 10^3/uL (130-400); Red Blood Cell Count 4.77 10^6/uL (4.70-6.10); Red Cell Dist. Width 12.5 % (11.5-14.5); White Blood Cell Count 10.8 10^3/uL (4.8-10.8)
[2024-06-28 23:00] VITALS: BP 121/76
[2024-06-28 23:05] LABS: ALT (SGPT) 15 U/L (0-50); AST (SGOT) 17 U/L (17-59); Albumin 4.4 g/dl (3.5-5.0); Alkaline Phosphatase 84 U/L (38-126); Blood Urea Nitrogen 14 mg/dl (9-20); Calcium 9.1 mg/dl (8.4-10.2); Carbon Dioxide 25 mmol/L (22-30); Chloride 101 mmol/L (98-107); Estimated Creatinine Clearance > 125 ml/min; Glucose 117 mg/dl (70-99); Potassium 4.2 mmol/L (3.5-5.1); Sodium 139 mmol/L (135-145); Total Bilirubin 0.9 mg/dl (0.2-1.3); Total Protein 6.6 g/dl (6.3-8.2); eGFR > 60.00
--- NOTE | 2024-06-29 00:56 | ED.GENMED ---
History of Present Illness
General
Chief Complaint: Abdominal Pain
Source: patient and spouse
Time Seen by Provider: 06/28/24 21:14
History of Present Illness
History of Present Illness:
64-year-old male who was recovered for stroke and fallen several days ago into a soap dispenser. He has had persistent pain since then. Patient states he was diagnosed with a deep muscle contusion. States he also has felt little bloated. No
significant vomiting. No fevers. Was recently placed on some diabetic medications. Does have a history of irritable bowel syndrome. Is not sure if it is related to his fall or not. No stool changes
Past History
Past History
ED Past Medical History: HTN, Hypercholesterolemia, NIDDM and Other (IBS, Obesity)
ED Past Surgical History: Cholecystectomy
Social History
Tobacco: Non-smoker
Alcohol: None
Drug: None
Personal:
Living: with family
Employment: Employed
Family History
Family History: Other (Mother had [place] at 60)
Phy Exam
Physical Exam
Physical Exam:
CONSTITUTIONAL Patient alert and oriented to person, place and time. Well-appearing. Vital signs reviewed.
HEAD atraumatic, normocephalic.
EYES eyelids normal to inspection, Extraocular muscles intact, Conjunctiva normal, Sclera normal.
NECK normal range of motion, Trachea midline, no jugular venous distention.
RESPIRATORY CHEST No respiratory distress noted, Chest expansion equal,
ABDOMEN abdomen nontender, Bowel sounds normal. No distention.
BACK healing ecchymosis to the right lateral chest wall. Mild tenderness noted to the lower lateral right ribs.
UPPER EXTREMITY range of motion normal, Motor strength normal, no cyanosis, no edema.
LOWER EXTREMITY range of motion normal, Motor strength normal, no cyanosis, no edema.
NEURO Speech normal, No focal motor deficits, Rach coma scale 15, Memory normal, Cranial Nerves intact to screening exam.
SKIN skin warm, dry, and normal in color.
Course
Orders/Labs/Results
Orders:
Orders
06/28/24 22:19
CT Abd/Pel (IV only)-[facility] only Urgent
Comment:
Reason For Exam: R flank and R abd pain after fall, anticoagulated
06/28/24 22:41
Complete Blood Count/With Diff Urgent
Comprehensive Metabolic Panel Urgent
Abnormal Lab Results
06/28/24
22:41
MCH 31.2 H pg
(27.0-31.0)
Absolute Neuts (auto) 8.2 H 10^3/uL
(1.4-6.5)
Absolute Monos (auto) 0.8 H 10^3/uL
(0.1-0.6)
Neutrophils % 75.7 H %
(42.2-75.2)
Lymphocytes % 12.6 L %
(20.5-51.1)
Creatinine 0.6 L mg/dL
(0.7-1.3)
Glucose 117 H mg/dl
(70-99)
06/28/24 22:41
06/28/24 22:41
Vital Signs
Initial and Last Documented VS:
Initial Vital Signs
Temp Pulse Resp BP Pulse Ox
97.9 F 89 16 141/83 96
06/28/24 18:31 06/28/24 18:31 06/28/24 18:31 06/28/24 18:31 06/28/24 18:31
Last Documented Vital Signs
Temp Pulse Resp BP Pulse Ox
97.9 F 86 16 121/76 95
06/28/24 21:17 06/28/24 23:00 06/29/24 00:00 06/28/24 23:00 06/28/24 23:00
MDM/Problems Addressed
MDM/Problems Addressed:
Possible duodenitis, contusion
*Radiology
Radiology exam reviewed: radiology read reviewed
*Pulse Oximetry
Patient hypoxic: no
*Critical Care Note
Total Time (30-74mins, 75-104mins- exclusive of procedures): Not Applicable
Data Reviewed
Source: patient and spouse (Spouse states that she was just worried that maybe the faltered something inside the abdomen)
Patient Management
Escalation/DeEscalation of care consider admission/obs:
Considered admission but patient appears well and labs unremarkable. No AAA. No obvious trauma findings. Okay for outpatient management. Recommended clear liquid diet and slow progression
ED Attending Note
-
Portions of this chart may have been created with voice recognition software.� Occasional wrong word or��sound alike� substitutions may have occurred due to the inherent limitations of voice recognition software.
Discharge Plan
Departure
Patient Disposition: Home (Routine Discharge)
Date of Disposition: 06/29/24
Time of Disposition: 01:02
Patient with high blood pressure during this ER visit?: No
Discharge Problem:
Contusion of flank, Possible enteritis
Instructions: Abdominal Pain, Contusion
Prescriptions:
No Action
cholestyramine (with sugar) 4 GM powder in packet
4 gm PO DAILY
gabapentin 300 mg Capsule
300 mg PO TIDPRN PRN (Reason: mild pain)
chlorhexidine gluconate 0.12 % Mouthwash
15 ml BUCCAL TID
Rx Instructions:
take until next appointment
insulin aspart U-100 100 unit/mL (3 mL) Insulin Pen
8 unit SC AC 30 Days Qty: 7.2 0RF
lidocaine 4 % Adhesive Patch,Medicated
1 patch topical DAILY 30 Days Qty: 30 0RF
acetaminophen 325 mg Tablet
650 mg PO Q6HPRN PRN (Reason: mild pain/ fever>100.5F) 30 Days Qty: 90 0RF
tizanidine 2 mg Tablet
2 mg PO Q6HPRN PRN (Reason: spasm) Qty: 60 0RF
clopidogrel 75 mg Tablet
75 mg PO DAILY 12 Days Qty: 12 0RF
Analgesic [place] (m.salic-menth) 15-10 % Cream
1 applic topical QIDPRN PRN (Reason: [R] FLANK PAIN) 30 Days Qty: 50 0RF
Insulin Glargine Lantus [Lantus] 18 UNITS
Subcutaneous Insulin Syringe [Syringe-Insulin] 0 UNIT
As Directed mls/hr SC HS
Call prescription over the phone to pharmacy with needles and lancets.
Ordered By: Alyson Barksdale PA-C
Last Taken: Unknown
Jardiance 10 mg tablet
10 mg PO DAILY 30 Days Qty: 30 0RF
atorvastatin 40 mg Tablet
40 mg PO QPM Qty: 0 0RF
aspirin 81 MG tablet,delayed release (DR/EC)
81 mg PO DAILY Qty: 0 0RF
Rx Instructions:
continue aspirin and plavix for another 19 days and then discontinue plavix and continue aspirin indefinitely.
amlodipine 10 mg tablet
10 mg PO QPM Qty: 0 0RF
metformin 1,000 mg tablet
1,000 mg PO BID Qty: 0 0RF
Referrals:
Abdulaziz Valentine MD [Family Provider] -
Activity Restrictions/Additional Instructions:
Please see your doctor in the next 3 to 5 days. Advance diet slowly. Return immediately for worsening pain, tractable vomiting, fevers or any other concerns.
Interventions
Interventions:
*Risk Screen - Suicide Last Done: 06/28/24 18:31
*General Assessment Last Done: 06/28/24 21:18
*Neglect/Abuse Screening Last Done: 06/28/24 21:18
*ED- Fall Risk Assessment Last Done: 06/28/24 21:18
TW-Gqyuzs-Vatocfgmwj Assessment Last Done: 06/28/24 21:18
Discharge Date and Time
Print Language: IRANIAN
== END 2024-06-29 01:05 | disposition home or self-care (01) ==
LOC: EMR 18:28
PROVIDERS: EMERGENCY PHYSICIAN Emergency Medicine; FAMILY PHYSICIAN Physical Medicine & Rehabilitation
DX: S30.1XXA Contusion of abdominal wall, initial encounter (principal); W19.XXXA Unspecified fall, initial encounter; E11.9 Type 2 diabetes mellitus without complications; K58.9 Irritable bowel syndrome, unspecified; E66.9 Obesity, unspecified; E78.00 Pure hypercholesterolemia, unspecified; I10 Essential (primary) hypertension; Z82.49 Family history of ischemic heart disease and other diseases of the circulatory system; Z86.73 Personal history of transient ischemic attack (TIA), and cerebral infarction without residual deficits; Z90.49 Acquired absence of other specified parts of digestive tract
CPT/HCPCS: 99283; 74177; 80053; 85025; Q9967

== ENCOUNTER 2024-08-04 19:35 | Emergency (ER) | payer OTHER, SELFPAY ==
[2024-08-04 19:35] VITALS: BMI 36.1
[2024-08-04 19:39] VITALS: BP 137/84
[2024-08-04 20:00] VITALS: BP 144/74
[2024-08-04 20:36] VITALS: BP 144/76
[2024-08-04 20:47] LABS: % Basophils 0.8 % (0-2); % Eosinophils 1.8 % (0-6); % Immature Granulocytes 0.4 % (0-0.5); % Lymphocytes 22.4 % (20.5-51.1); % Monocytes 7.8 % (1.7-9.3); % Neutrophils 66.8 % (42.2-75.2); Absolute Basophils 0.1 10^3/uL (0-0.2); Absolute Eosinophils 0.1 10^3/uL (0-0.7); Absolute Lymphocytes 1.7 10^3/uL (1.2-3.4); Absolute Monocytes 0.6 10^3/uL (0.1-0.6); Absolute Neutrophils 5.1 10^3/uL (1.4-6.5); Hematocrit 43.4 % (39.0-52.0); Mean Corp Hgb Conc. 34.6 g/dL (33.0-37.0); Mean Corpuscular Hgb 30.7 pg (27.0-31.0); Mean Corpuscular Volume 88.9 fL (80.0-94.0); Mean Platelet Volume 10.1 fL (7.4-10.4); Nucleated Red Blood Cells % 0 % (-); Platelet Count 275 10^3/uL (130-400); Red Blood Cell Count 4.88 10^6/uL (4.70-6.10); Red Cell Dist. Width 13.1 % (11.5-14.5); White Blood Cell Count 7.7 10^3/uL (4.8-10.8)
[2024-08-04 20:49] LABS: Urine Albumin 1+ (Neg - Trace); Urine Bilirubin Negative (Negative); Urine Character Clear (Clear); Urine Color Yellow; Urine Glucose 3+ (Negative); Urine Ketone 3+ (Negative); Urine Leukocyte Negative (Negative); Urine Nitrite Negative (Negative); Urine Occult Blood Negative (Negative); Urine Specific Gravity 1.025 (<1.030); Urine Urobilinogen Negative (Neg - 1+)
[2024-08-04 21:00] VITALS: BP 148/78
[2024-08-04 21:07] LABS: ALT (SGPT) 21 U/L (0-50); AST (SGOT) 21 U/L (17-59); Albumin 4.1 g/dl (3.5-5.0); Alkaline Phosphatase 76 U/L (38-126); Blood Urea Nitrogen 18 mg/dl (9-20); Calcium 9.2 mg/dl (8.4-10.2); Carbon Dioxide 27 mmol/L (22-30); Chloride 106 mmol/L (98-107); Estimated Creatinine Clearance 110 ml/min; Glucose 126 mg/dl (70-99); Lipase 58 U/L (23-300); Potassium 3.6 mmol/L (3.5-5.1); Sodium 140 mmol/L (135-145); Total Bilirubin 0.9 mg/dl (0.2-1.3); Total Protein 6.6 g/dl (6.3-8.2); Urine Red Blood Cell None Seen /HPF (0-2); Urine Squamous Cell None seen /LPF (Few); Urine White Cell 0-2 /HPF (0-5); eGFR > 60.00
[2024-08-04] MEDS: PEPCID 20 MG IV (23:04)
--- NOTE | 2024-08-04 23:11 | ED.GENMED ---
History of Present Illness
General
Chief Complaint: Abdominal Pain
Source: patient
Exam Limitations: none
Time Seen by Provider: 08/04/24 20:03
Nursing documentation reviewed up to this point in time: agreed with
History of Present Illness
History of Present Illness:
64-year-old male past medical history of hypertension hyperlipidemia, diabetes presenting to the emergency department today with concerns of right upper quadrant pain has been ongoing over the past few months. Seem to start when he was in the here
a few months ago. He was all that this could be a duodenal ulcer was started on Protonix but has not had any improvement of symptoms.
Past History
Past History
ED Past Medical History: HTN, Hypercholesterolemia, NIDDM and Other (IBS, Obesity)
ED Past Surgical History: Cholecystectomy
Social History
Tobacco: Non-smoker
Alcohol: None
Drug: None
Personal:
Living: with family
Employment: Employed
Family History
Family History: Other (Mother had [place] at 60)
Review of Systems
Review of Systems
Allergies reviewed?: Yes
All Other Systems: ROS reviewed and negative except as documented in HPI and ROS
Phy Exam
Physical Exam
Physical Exam:
GENERAL: Alert , in no apparent distress
EYE: pupils equal and reactive
NECK: Supple, no significant adenopathy.
ENT: o/p clr, mmm.
CARDIAC: Regular rate and rhythm .
LUNGS: Clear breath sounds bilaterally, no acute respiratory distress, no wheezes/rales/rhonchi
ABDOMEN: Slight discomfort to the right upper quadrant otherwise soft abdomen
NEUROLOGICAL: Alert and oriented, no focal neuro deficits
SKIN: Warm and dry, skin intact.
MUSCULOSKELETAL: No edema, well perfused.
PSYCH: Normal and appropriate interaction.
Course
Orders/Labs/Results
Orders:
Orders
08/04/24 20:14
CT Abd/Pel (IV only)-[facility] only Urgent
Comment:
Reason For Exam: R head pain
08/04/24 20:30
Complete Blood Count/With Diff Urgent
Comprehensive Metabolic Panel Urgent
Lipase Urgent
Urinalysis Reflex To Culture Urgent
Date Specimen was Collected: 08/04/24
Time Specimen was Collected: 20:24
Urine Microscopic Reflex Cult Urgent
08/04/24 23:02
Famotidine [Pepcid] 20 mg IV NOW STA
Abnormal Lab Results
08/04/24
20:30
Glucose 126 H mg/dl
(70-99)
Urine Ketones 3+ A
(Negative)
Urine Glucose 3+ A
(Negative)
Urine Albumin (Reflex) 1+ A
(Neg - Trace)
08/04/24 20:30
08/04/24 20:30
Vital Signs
Initial and Last Documented VS:
Initial Vital Signs
Temp Pulse Resp BP Pulse Ox
98.6 F 87 16 137/84 96
08/04/24 19:39 08/04/24 19:39 08/04/24 19:39 08/04/24 19:39 08/04/24 19:39
Last Documented Vital Signs
Temp Pulse Resp BP Pulse Ox
98.6 F 78 16 148/78 99
08/04/24 19:39 08/04/24 21:15 08/04/24 22:00 08/04/24 21:00 08/04/24 22:00
MDM/Problems Addressed
MDM/Problems Addressed:
64-year-old male presenting to the emergency department today with concerns of right-sided abdominal pain been ongoing over the past few months after having a stroke and being in the hospital for multiple days. Here on arrival vital signs are
normal patient in no obvious distress does claim to have ongoing right upper quadrant abdominal pain that has been ongoing and slightly worsening over the past few weeks. Protonix without relief. CT scan was obtained here without significant
abnormalities. Labs normal. Possibility of ulcer was considered. He was advised on proper management from home and GI follow-up. Return precautions given.
*Critical Care Note
Total Time (30-74mins, 75-104mins- exclusive of procedures): Not Applicable
ED Attending Note
-
Portions of this chart may have been created with voice recognition software.� Occasional wrong word or��sound alike� substitutions may have occurred due to the inherent limitations of voice recognition software.
Discharge Plan
Departure
Patient Disposition: Home (Routine Discharge)
Date of Disposition: 08/04/24
Time of Disposition: 23:15
Patient with high blood pressure during this ER visit?: No
Condition: Good
Covid-19: Not Applicable
Discharge Problem:
Right upper quadrant abdominal pain
Instructions: Peptic ulcers, Abdominal Pain
Prescriptions:
New
sucralfate [Carafate] 100 mg/mL suspension
10 ml PO ACHS Qty: 200 0RF
famotidine 40 mg tablet
40 mg PO HS Qty: 14 0RF
No Action
cholestyramine (with sugar) 4 GM powder in packet
4 gm PO DAILY
gabapentin 300 mg Capsule
300 mg PO TIDPRN PRN (Reason: mild pain)
chlorhexidine gluconate 0.12 % Mouthwash
15 ml BUCCAL TID
Rx Instructions:
take until next appointment
insulin aspart U-100 100 unit/mL (3 mL) Insulin Pen
8 unit SC AC 30 Days Qty: 7.2 0RF
lidocaine 4 % Adhesive Patch,Medicated
1 patch topical DAILY 30 Days Qty: 30 0RF
acetaminophen 325 mg Tablet
650 mg PO Q6HPRN PRN (Reason: mild pain/ fever>100.5F) 30 Days Qty: 90 0RF
tizanidine 2 mg Tablet
2 mg PO Q6HPRN PRN (Reason: spasm) Qty: 60 0RF
clopidogrel 75 mg Tablet
75 mg PO DAILY 12 Days Qty: 12 0RF
Analgesic [place] (m.salic-menth) 15-10 % Cream
1 applic topical QIDPRN PRN (Reason: [R] FLANK PAIN) 30 Days Qty: 50 0RF
Insulin Glargine Lantus [Lantus] 18 UNITS
Subcutaneous Insulin Syringe [Syringe-Insulin] 0 UNIT
As Directed mls/hr SC HS
Call prescription over the phone to pharmacy with needles and lancets.
Ordered By: Alyson Barksdale PA-C
Last Taken: Unknown
Jardiance 10 mg tablet
10 mg PO DAILY 30 Days Qty: 30 0RF
atorvastatin 40 mg Tablet
40 mg PO QPM Qty: 0 0RF
aspirin 81 MG tablet,delayed release (DR/EC)
81 mg PO DAILY Qty: 0 0RF
Rx Instructions:
continue aspirin and plavix for another 19 days and then discontinue plavix and continue aspirin indefinitely.
amlodipine 10 mg tablet
10 mg PO QPM Qty: 0 0RF
metformin 1,000 mg tablet
1,000 mg PO BID Qty: 0 0RF
Referrals:
Saskia Schroeder MD [Family Provider, Family Practice]
Sonali Richard MD [Active, Gastroenterology]
Activity Restrictions/Additional Instructions:
You came to the emergency department today with concerns of upper abdominal pain. Here had a reassuring assessment with normal CT scan and labs. This could be a potential ulcer. Please take the prescribed medications. Please take famotidine
before bed and take the Protonix correctly. You can take the Carafate as needed. Otherwise please follow-up closely with GI. Return for any worsening, new or concerning symptoms.
Interventions
Interventions:
*Risk Screen - Suicide Last Done: 08/04/24 19:42
*General Assessment Last Done: 08/04/24 20:48
*Neglect/Abuse Screening Last Done: 08/04/24 19:42
*ED- Fall Risk Assessment Last Done: 08/04/24 20:48
*Nursing Disposition Last Done: 08/04/24 23:05
EL-Crtcgu-Xuffvzrtte Assessment Last Done: 08/04/24 20:48
Discharge Date and Time
Print Language: KAZAKH
== END 2024-08-04 23:18 | disposition home or self-care (01) ==
LOC: EMR 19:35
PROVIDERS: Physician Assistant; EMERGENCY PHYSICIAN Emergency Medicine; FAMILY PHYSICIAN Family Medicine
DX: R10.11 Right upper quadrant pain (principal); I10 Essential (primary) hypertension; E78.00 Pure hypercholesterolemia, unspecified; E11.9 Type 2 diabetes mellitus without complications; E66.9 Obesity, unspecified; K58.9 Irritable bowel syndrome, unspecified; Z82.49 Family history of ischemic heart disease and other diseases of the circulatory system; Z86.73 Personal history of transient ischemic attack (TIA), and cerebral infarction without residual deficits; Z90.49 Acquired absence of other specified parts of digestive tract
CPT/HCPCS: 99284; 96374; 74177; 80053; 81003; 81015; 83690; 85025; Q9967

== ENCOUNTER → 2024-10-12 07:37 | Outpatient (REF) | payer OTHER, SELFPAY | LOC: RAD 07:37 | PROVIDERS: ATTENDING PHYSICIAN Internal Medicine Gastroenterology; FAMILY PHYSICIAN Family Medicine | DX: E11.649 Type 2 diabetes mellitus with hypoglycemia without coma (principal) | CPT/HCPCS: 78264; A9541 ==